=== PATIENT | male | born 1975 | race Caucasian/White ===

== ENCOUNTER → 2020-01-11 09:49 | Outpatient (CLI) | payer OTHER, SELFPAY ==
--- NOTE | ~2020-01-11 | MR_ITS ---
EXAMINATION: MR lumbar spine wo/w con DATE: 01/11/2020 11:39 INDICATION: Intervertebral disc degeneration with low back pain and 3 weeks of left leg pain. TECHNIQUE: Magnetic resonance imaging (MRI) of the lumbar spine was performed without and with 18 mL Multihance intravenous contrast. Sequences included sagittal T2-weighted FSE, sagittal T2-weighted FS FSE, sagittal T1-weighted FSE, axial T2-weighted FSE, and axial T1-weighted SE. Postcontrast sequenc es included sagittal T1-weighted FS FSE, and axial T1-weighted FS SE. COMPARISON: None FINDINGS: Alignment is normal. Vertebral body heights are normal. Normal marrow signal. Disc desiccation, cliff lar fissures and mild disc height loss at L4-L5 and L5-S1. The conus medullaris terminates at L1. The re is normal signal in the caudal spinal cord. Paravertebral soft tissues are unremarkable. No abnorm ally enhancing lesions identified. The following disc levels are specifically discussed: T12-L1: The disc does not extend beyond the endplate margin. There is no facet joint osteoarthritis. There is no neural foraminal stenosis. There is no central canal stenosis. L1-L2: The disc does not extend beyond the endplate margin. There is mild bilateral facet joint osteo arthritis. There is no neural foraminal stenosis. There is no central canal stenosis. L2-L3: The disc does not extend beyond the endplate margin. There is mild right and minimal left face t joint osteoarthritis. There is no neural foraminal stenosis. There is no central canal stenosis. L3-L4: The disc does not extend beyond the endplate margin. There is mild left and minimal right face t joint osteoarthritis. There is no neural foraminal stenosis. There is no central canal stenosis. L4-L5: Disc is bulging with superimposed small central disc extrusion with disc which are extending u p to 3 mm cephalad to the level of the inferior endplate of L4. There is mild left and minimal right facet joint osteoarthritis. There is mild to moderate bilateral neural foraminal stenosis. There is m ild central canal stenosis. L5-S1: Disc is mildly bulging with superimposed small right paracentral disc extrusion with disc mate rial extending a couple millimeters caudal to the level of the superior endplate of S1. There is mild bilateral facet joint osteoarthritis. There is moderate bilateral, left greater than right neural fo raminal stenosis. There is no central canal stenosis. IMPRESSION: 1. Mild lower lumbar spondylosis with moderate bilateral neural foraminal stenosis at L5-S1. Reviewed, dictated and finalized at location A. IMPRESSION: 1. Mild lower lumbar spondylosis with moderate bilateral neural foraminal steno sis at L5-S1.
[2020-01-11 11:03] LABS: Estimated Glomerular Filt Rate 60
== END ==
PROVIDERS: Visit Provider Chiropractor
DX: M51.36 Other intervertebral disc degeneration, lumbar region (principal); M54.32 Sciatica, left side; M47.896 Other spondylosis, lumbar region
CPT/HCPCS: 36415; 72158; A9577

== ENCOUNTER 2020-09-28 23:15 | Emergency (ER) | payer OTHER, SELFPAY ==
--- NOTE | ~2020-09-28 | CT_ITS ---
EXAMINATION: CT abdomen pelvis wo con DATE: 09/29/2020 00:42 INDICATION: Right flank pain TECHNIQUE: Computed tomography (CT) of the abdomen and pelvis was performed without intravenous contr ast. The dose-length product (DLP) was 649.19 mGy-cm. Automated exposure control and iterative recons truction technique were employed. COMPARISON: 09/05/2019 FINDINGS: Minimal dependent atelectasis is present in the lung bases. The heart size is normal. The l iver, spleen, pancreas, gallbladder, and adrenal glands are normal. There is a 4 mm stone at the righ t ureterovesicular junction. A second 4 mm stone is seen in the distal right ureter. There is moderat e right hydroureteronephrosis. There are punctate nonobstructing stones in both kidneys. No pathologi elie enlarged abdominal or pelvic lymph nodes are identified. There is no free intraperitoneal gas o r evidence of bowel obstruction. The appendix is normal. There is mild lumbar spondylosis. IMPRESSION: 1. Two 4 mm stones of the right ureter, one in the distal ureter and one at the ureterovesicular junc tion which causes moderate hydroureteronephrosis. 2. Punctate bilateral nephrolithiasis. Reviewed, dictated and finalized at location A. L EXPERT IMPRESSION: 1. Two 4 mm stones of the right ureter, one in the distal ureter and one at the ureterovesicular junction which causes moderate hydroureteronephrosis. 2. Punctate bilateral nephrolithiasis.
[2020-09-28 23:21] VITALS: BP 142/95; PULSE 92; RESP 20; TEMP 36.2; O2SAT 100
[2020-09-28 23:42] LABS: Basophils Absolute Auto 0.1 K/mm3 (0.0-0.1); Basophils Percent Auto 0.9 % (0.2-1.2); Eosinophils Absolute Auto 0.2 K/mm3 (0-0.3); Eosinophils Percent Auto 2.1 % (0-4.4); Hematocrit 47.3 % (42.0-52.0); Hemoglobin 16.7 g/dL (14.0-18.0); Immature Granulocyte Absolute 0.02 K/mm3 (0.00-0.031); Immature Granulocyte Percent A 0.2 % (0-0.5); Lymphocytes Absolute Auto 2.46 K/mm3 (0.9-3.2); Lymphocytes Percent Auto 30.6 % (18.3-44.2); Mean Corpuscular HGB Conc 35.3 g/dl (32-36); Mean Corpuscular Hemoglobin 31.4 pg (26-34); Mean Corpuscular Volume 88.9 fl (80-100); Mean Platelet Volume 8.9 fl (7.4-10.4); Monocytes Percent Auto 11.9 % (2.6-8.5); Neutrophils Absolute Auto 4.4 K/mm3 (1.3-6.7); Neutrophils Percent Auto 54.3 % (45.5-73.1); Platelet Count Result 259 k/mm3 (150-375); Red Blood Count 5.32 M/mm3 (4.6-6.20); Red Cell Distribution Width 12.1 % (11.5-14.5)
[2020-09-28] MEDS: MORPHINE SULFATE (*CRX) 4 MG/ML INJ IV PUSH (23:44)
[2020-09-28] MEDS: ONDANSETRON INJ 4 MG/2 ML VIAL IV PUSH (23:44)
[2020-09-28 23:48] VITALS: O2SAT 100
[2020-09-28 23:49] VITALS: BP 131/86; O2SAT 100
[2020-09-28 23:50] LABS: Add Urine Microscopic? YES; Appearance Urine Clear (Clear); Bilirubin Urine Negative (Negative); Blood Urine 3+ (Negative); Color Urine Yellow (Yellow); Glucose Urine UA Negative (Negative); Ketones Urine Negative (Negative); Leukocyte Esterase Ur Negative LEU/UL (Negative); Mucus Urine Few /lpf; Nitrate Urine Negative (Negative); Protein Urine 1+ mg/dL (Negative); RBC Urine >75 /hpf (0-2); Specific Grav Ur 1.018 (1.001-1.035); Squamous Epithelial Cell Urine Rare /hpf (Few); Urobilinogen Urine Negative mg/dL (<2.0)
[2020-09-29] VITALS: BP 136/96; O2SAT 98
[2020-09-29 00:01] VITALS: O2SAT 98
[2020-09-29 00:02] LABS: Anion Gap 8 mmol/L (8-16); Blood Urea Nitrogen 11 mg/dL (9-20); Calcium 9.2 mg/dL (8.4-10.2); Carbon Dioxide 29 mmol/L (22-30); Chloride 100 mmol/L (98-107); Estimated CRCL calculation 78 ml/min; Estimated Glomerular Filt Rate > 60; Glucose 115 mg/dL (75-110); Potassium 3.7 mmol/L (3.4-5.0); Sodium 137 mmol/L (137-145)
[2020-09-29 00:15] VITALS: O2SAT 98
[2020-09-29 00:31] VITALS: O2SAT 99
[2020-09-29] MEDS: HYDROmorphone HCL INJ (*CRX) 1 MG/ML SYR IV PUSH ×2 (00:45→01:59)
[2020-09-29] MEDS: ONDANSETRON INJ 4 MG/2 ML VIAL IV PUSH (00:45)
--- NOTE | 2020-09-29 01:37 | ED.GENADULT ---
HPI - General Adult General Chief complaint: Urogenital-Male Stated complaint: right flank pain Time Seen by Provider: 09/29/20 00:20 History of Present Illness HPI narrative: Patient 44-year-old gentleman who presents to emergency department with chief complaint of right flank pain. The patient reports he has history of kidney stones states this feels similar to whenever he has had stone before in the past. Patient sees urology the Dr. Barone and reports that he is only had 1 prior episode where he is required a stent. Patient states that he has had no fever no chills. The patient states the pain is not worsened by anything nor is it improved by anything. Related Data Allergies Allergy/AdvReac Type Severity Reaction Status Date / Time No Known Allergies Allergy Verified 09/28/20 23:25 Review of Systems Review of Systems: Narrative: A 10 system review of systems was completed on the patient and is negative except for what is stated in the HPI. Nursing and ancillary documentation was reviewed. [facility]LY [facility] Past Medical History Medical History Urolithiasis Surgical History Surgical History S/P ureteral stent placement Social History Social History Gender identity (if verbalized by the patient): Male Exam Narrative: Exam Narrative: GENERAL: Well-appearing, well-nourished, and in no acute distress. HEAD: Normocephalic, atraumatic. EYES: PERRLA and EOMI. ENT: Nares clear, no rhinorrhea or epistaxis. Mucous membranes moist. NECK: Supple. CHEST: Clear to auscultation. No respiratory distress. HEART: Regular rate and rhythm. No murmur heard. Normal peripheral pulses. ABDOMEN: Soft, nontender, nondistended, normal active bowel sounds. EXTREMITIES: Normal range of motion. No edema. SKIN: Warm, dry, no rash. NEURO: No focal deficits. Alert and oriented x3. PSYCH: Normal mood and affect. Course Course Emergency Course: Patient's pain was improved in the emergency department CT scan showed evidence of a 5 mm distal stone and a 4 mm stone Vital Signs Vital signs: Vital Signs Temperature 36.2 C L 09/28/20 23:21 Pulse Rate 92 09/28/20 23:21 Respiratory Rate 20 09/28/20 23:21 Blood Pressure 142/95 H 09/28/20 23:21 Pulse Oximetry 100 09/28/20 23:21 Temperature 36.2 C L 09/28/20 23:21 Pulse Rate 92 09/28/20 23:21 Respiratory Rate 20 09/28/20 23:21 Blood Pressure 136/96 H 09/29/20 00:00 Pulse Oximetry 99 09/29/20 00:31 Medical Decision Making Vital Signs Vital Signs: Vital Signs Temperature 36.2 C L 09/28/20 23:21 Pulse Rate 92 09/28/20 23:21 Respiratory Rate 20 09/28/20 23:21 Blood Pressure 142/95 H 09/28/20 23:21 Pulse Oximetry 100 09/28/20 23:21 Temperature 36.2 C L 09/28/20 23:21 Pulse Rate 92 09/28/20 23:21 Respiratory Rate 20 09/28/20 23:21 Blood Pressure 136/96 H 09/29/20 00:00 Pulse Oximetry 99 09/29/20 00:31 Lab Data Result diagrams: 09/28/20 23:35 09/28/20 23:35 Labs: Lab Results 09/28/20 09/28/20 09/28/20 Range/Units 23:35 23:35 23:35 WBC 8.0 (4.5-10.0) K/mm3 RBC 5.32 (4.6-6.20) M/mm3 Hgb 16.7 (14.0-18.0) g/dL Hct 47.3 (42.0-52.0) % MCV 88.9 (80-100) fl MCH 31.4 (26-34) pg MCHC 35.3 (32-36) g/dl RDW 12.1 (11.5-14.5) % Plt Count 259 (150-375) k/mm3 MPV 8.9 (7.4-10.4) fl Immature Gran % (Auto) 0.2 (0-0.5) % Neut % (Auto) 54.3 (45.5-73.1) % Lymph % (Auto) 30.6 (18.3-44.2) % [place] % (Auto) 11.9 H (2.6-8.5) % Eos % (Auto) 2.1 (0-4.4) % Baso % (Auto) 0.9 (0.2-1.2) % Lymph # (Auto) 2.46 (0.9-3.2) K/mm3 [place] # (Auto) 1.0 H (0.1-0.6) K/mm3 Eos # (Auto) 0.2 (0-0.3) K/mm3 Baso # (Auto) 0.1 (0.0-0.1) K/mm3 Abs Immat Gran
[2020-09-29] MEDS: KETOROLAC 15 MG/ML VIAL (*BKC) IV PUSH (01:59)
[2020-09-29] MEDS: TAMSULOSIN HCL 0.4 MG CAPSULE PO (01:59)
[2020-09-29 02:15] VITALS: BP 123/89; PULSE 99; RESP 18; O2SAT 97
== END 2020-09-29 02:17 | disposition home or self-care (01) ==
PROVIDERS: Emergency Provider Emergency Medicine
DX: N13.2 Hydronephrosis with renal and ureteral calculous obstruction (principal)
CPT/HCPCS: 36415; 74176; 80048; 81001; 85025; 96374; 96375; 96376; 99284; A9270; J1170; J1885; J2270; J2405

== ENCOUNTER 2020-10-27 08:38 | Outpatient (CLI) | payer OTHER, SELFPAY ==
--- NOTE | 2020-11-21 13:52 | WPDHOMESLEEP ---
Sleep Study - Home Unattended Date of Study: 10/27/20 Ordering Provider: Jagdish Burk MD Interpreting Provider: Shaila Goldstein MD Home Sleep Study Type: Apnea Link Air Height: 1.78 m Weight: 92.986 kg Body Mass Index: 29.4 Neck Circumference (inches): 16.25 Sparks: 5 Reason for Sleep Study loud snoring Sleep History Phillip Addison is a 45-year-old male who has constant loud snoring, and the snoring is loud enough that others complain about it. He frequently awakens at night with [place] burn, belching or coughing. He does not awaken from sleep feeling short of breath. Rarely has trouble sleep with a cold. He does not wake up gasping for breath at night. He rarely has breathing problems at night observed by others. He occasionally sweats excessively at night. He does not notice his heart pounding irregularly at night. He rarely falls asleep during the day, never involuntarily and never while driving. He does not have loss of muscle tone was strong emotion. He does not have daytime difficulties due to excessive sleepiness. 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 He does not feel paralyzed on waking or falling asleep. He does not have vivid dreamlike scenes upon awakening or falling asleep. He does not feel afraid to go to sleep. He does not have nightmares. He occasionally remembers his dreams. He rarely has racing thoughts. He does not feel sad or depressed. He occasionally has anxiety. He does not have muscular tension. He occasionally notices parts of his body jerking. He rarely kicks at night. He does not have crawling and aching feelings in his legs. He does not have leg pain at night. He occasionally wakes up with morning jaw pain. He occasionally grind his teeth during sleep. He is not bothered by pain during the day, is not awakened by pain at night. He constantly wakes up feeling stiff in the morning, frequently with sore achy muscles and pain in the neck and spine. He takes antacids regularly. Normal bedtime is 10:00 p.m. falling asleep quickly but at other times taking quite a while to initiate sleep. He wakes up typically 1 or 2 times at night, will move from couch. He is able to fall asleep quickly again. He wakes the morning at 7:00 a.m.. Weekend he goes to bed between 10:00 and 11:00 pm, waking between 8:00 am and 9:00 am. He is drowsy for 2 hours or longer after waking. He does not usually take naps. Naps are not refreshing. Habits: He has never smoked tobacco. Caffeine 1 cup of coffee a day occasionally a soda. Alcohol 1 or 2 beers on the weekend. [facility] Past Medical History Medical History Kidney stones 1998 Urolithiasis Surgical History Surgical History Previous back surgery 05/18 micro-discectomy S/P ureteral stent placement Family History Family History Father Cerebrovascular accident Legally blind Other Kidney stones Previous back surgery Social History Social History Smoking status: Never smoker Tobacco type: smokeless tobacco Alcohol intake: former Gender identity (if verbalized by the patient): Male Sleep Procedure This test was performed using 4 channel monitoring including respiratory effort channel, snoring channel, heart rate channel, and oxygen saturation channel. This study was scored using [facility] guidelines. Sleep Architecture Not applicable for home sleep test. Respiratory Analysis Duration of the recording time is 8 hours 20 minutes. Evaluation time is 8 hours 8 minutes. The apnea-hypopnea index is elevated at 19. He had 48 apneas. Had 34 obstructive apneas, 71% obstructive events, 13 central apneas, 27% central events and 1 mixed apnea 2% of the total. He had 108 hypopneas. there is no evidence of Sukhdev-Osborne respirations.
[2020-11-21 15:15] VITALS: BMI 29.4
== END 2020-10-27 08:39 | disposition home or self-care (01) ==
LOC: ANHCSM 08:40
PROVIDERS: Family Provider Family Medicine; Visit Provider Family Medicine
DX: G47.10 Hypersomnia, unspecified (principal); G47.33 Obstructive sleep apnea (adult) (pediatric)
CPT/HCPCS: 95806

== ENCOUNTER → 2021-01-22 04:31 | Outpatient (CLI) | payer OTHER, SELFPAY ==
[2021-01-22 19:57] LABS: SARS-CoV-2 RNA PCR Negative
== END ==
PROVIDERS: PCP Emergency Medicine; Visit Provider Internal Medicine Critical Care Medicine
DX: Z01.812 Encounter for preprocedural laboratory examination (principal); Z20.822 Contact with and (suspected) exposure to COVID-19
CPT/HCPCS: C9803; U0003; U0005

== ENCOUNTER 2021-01-24 07:17 | Outpatient (CLI) | payer OTHER, SELFPAY ==
--- NOTE | 2021-02-06 17:22 | WPDSLEEPSTUD ---
Sleep Study Ordering Provider: Pal Ramos MD Interpreting Physician: Shaila Goldstein MD Sleep Study Type: CPAP Titration Height: 1.78 m Weight: 93.416 kg Body Mass Index: 29.5 Neck Circumference (inches): 17 Slemp: 6 Reason for Sleep Study Home sleep test Oct 27, 2020 with moderate KRISTEN, AHI 19., desaturation to 89%. He had 48 apneas; 34 obstructive apneas, 71% obstructive events, 13 central apneas, 27% central events and 1 mixed apnea 2% of the total. He had 108 hypopneas. He is here for CPAP titration. Sleep History Phillip Addison is a 45-year-old male who has constant loud snoring, and the snoring is loud enough that others complain about it. He frequently awakens at night with heartburn, belching or coughing. He does not awaken from sleep feeling short of breath. He rarely has trouble sleep with a cold. He does not wake up gasping for breath at night. He rarely has breathing problems at night observed by others. He occasionally sweats excessively at night. He does not notice his heart pounding irregularly at night. He rarely falls asleep during the day, never involuntarily and never while driving. He does not have loss of muscle tone with strong emotion. He does not have daytime difficulties due to excessive sleepiness. 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 He does not feel paralyzed on waking or falling asleep. He does not have vivid dreamlike scenes upon awakening or falling asleep. He does not feel afraid to go to sleep. He does not have nightmares. He occasionally remembers his dreams. He rarely has racing thoughts. He does not feel sad or depressed. He occasionally has anxiety. He does not have muscular tension. He occasionally notices parts of his body jerking. He rarely kicks at night. He does not have crawling and aching feelings in his legs. He does not have leg pain at night. He occasionally wakes up with morning jaw pain. He occasionally grind his teeth during sleep. He is not bothered by pain during the day, is not awakened by pain at night. He constantly wakes up feeling stiff in the morning, frequently with sore achy muscles and pain in the neck and spine. He takes antacids regularly. Normal bedtime is 10:00 p.m. falling asleep quickly but at other times taking quite a while to initiate sleep. He wakes up typically 1 or 2 times at night, will move to the couch. He is able to fall asleep quickly again. He wakes the morning at 7:00 a.m.. Weekends, he goes to bed between 10:00 and 11:00 pm, waking between 8:00 am and 9:00 am. He is drowsy for 2 hours or longer after waking. He does not usually take naps. Naps are not refreshing. Habits: He has never smoked tobacco. Caffeine 1 cup of coffee a day and occasionally a soda. Alcohol 1 or 2 beers on the weekends. FORMERLY [facility] Past Medical History Medical History (Updated 02/06/21 @ 17:23 by Shaila Goldstein MD) Kidney stones 1998 Obstructive sleep apnea Urolithiasis Surgical History Surgical History Previous back surgery 05/18 micro-discectomy S/P ureteral stent placement Family History Family History Father Cerebrovascular accident Legally blind Other Kidney stones Previous back surgery Social History Social History Smoking status: Never smoker Tobacco type: smokeless tobacco Alcohol intake: former Gender identity (if verbalized by the patient): Male Medications Medications: none listed Sleep Procedure This test was performed using the [employer] multiple channel system including EOG, EEG, submental EMG, EKG, nasal and oral airflow using thermistors and nasal pressure sensors, chest and abdominal belts for body position data, and pulse oximetry. Video monitoring was also performed. The study was scored using [facility] guidelines. The patient was started on CPAP using a
[2021-02-06 17:23] VITALS: BMI 29.5
== END 2021-01-24 07:18 | disposition home or self-care (01) ==
LOC: ANHCSM 07:18
PROVIDERS: PCP Emergency Medicine; Visit Provider Emergency Medicine
DX: G47.33 Obstructive sleep apnea (adult) (pediatric) (principal)
CPT/HCPCS: 95811

== ENCOUNTER 2022-07-31 03:22 | Emergency (ER) | payer OTHER, SELFPAY ==
--- NOTE | ~2022-07-31 | XR_ITS ---
EXAMINATION: XR abdomen/kub 1V DATE: 07/31/2022 06:30 INDICATION: Kidney stone. TECHNIQUE: A supine view of the abdomen on 2 radiographs was obtained. COMPARISON: Abdomen radiographs 09/05/2019 FINDINGS: There are no dilated loops of bowel. There is a 4 mm stone in proximal right ureter at L3. IMPRESSION: 1. 4 mm stone in proximal right ureter. Reviewed, dictated and finalized at location A.
--- NOTE | ~2022-07-31 | CT_ITS ---
EXAMINATION: CT abdomen pelvis wo con DATE: 07/31/2022 04:00 INDICATION: Right flank pain. TECHNIQUE: Computed tomography (CT) of the abdomen and pelvis was performed without intravenous contr ast. Automated exposure control and iterative reconstruction technique were employed. The dose-length product was 354.47 mGy-cm. COMPARISON: CT abdomen and pelvis 09/29/2020 FINDINGS: The visualized portions of the lung bases demonstrate mild atelectasis. No pleural effusion . The heart size is normal. No pericardial effusion. The liver, gallbladder, spleen, pancreas, and ad renal glands are normal. There is a 2 mm stone in right kidney. There is mild right hydronephrosis an d hydroureter. There is a 4 mm stone in proximal right ureter. There is a 4 mm stone in left kidney. There are no dilated loops of bowel. The appendix is normal. There are no pathologically enlarged lym ph nodes. There is no free intraperitoneal fluid. There is severe lower lumbar spondylosis. IMPRESSION: 1. 4 mm stone in proximal right ureter with mild right hydronephrosis and hydroureter. 2. Bilateral nonobstructing kidney stones. Reviewed, dictated and finalized at location A. IMPRESSION: 1. 4 mm stone in proximal right ureter with mild right hydronephrosis and hydro ureter. 2. Bilateral nonobstructing kidney stones.
[2022-07-31 03:37] VITALS: BP 143/96; PULSE 77; RESP 18; TEMP 36.3; O2SAT 97
[2022-07-31] MEDS: ONDANSETRON INJ 4 MG/2 ML VIAL IV PUSH (04:07)
[2022-07-31] MEDS: KETOROLAC 30 MG/ML VIAL (*BKC) IV PUSH (04:07)
[2022-07-31] MEDS: SODIUM CHLORIDE 0.9% IV 1,000 ML 999 ML IV CONT (04:07)
[2022-07-31] MEDS: MORPHINE SULFATE (*CRX) 4 MG/ML INJ IV PUSH (04:49)
[2022-07-31 05:01] LABS: Appearance Urine Clear (Clear); Bilirubin Urine Negative (Negative); Blood Urine 1+ (Negative); Color Urine Yellow (Yellow); Glucose Urine UA Negative (Negative); Ketones Urine Negative (Negative); Leukocyte Esterase Ur Negative LEU/UL (Negative); Nitrate Urine Negative (Negative); Protein Urine Negative (Negative); Specific Grav Ur 1.025 (1.001-1.035); Urobilinogen Urine 0.2 mg/dL (<2.0); pH Urine 5.5 (5.0-9.0)
[2022-07-31 05:21] LABS: Add Urine Microscopic? YES
--- NOTE | 2022-07-31 05:27 | ED.MALEGU ---
HPI - Male Genitourinary General Chief complaint: Urogenital-Male Stated complaint: Kidney stone R side Time Seen by Provider: 07/31/22 03:25 History of Present Illness HPI Narrative: Patient is a 46-year-old male who presents to the ER with right-sided flank pain. Sudden onset this evening. Right side of her abdomen. Associate with nausea but no vomiting. No urinary frequency or urgency. Denies fevers or chills or sweats. Has history of recurrent kidney stones in the past. Began drinking water when symptoms started. Alleviating factors Related Data Allergies Allergy/AdvReac Type Severity Reaction Status Date / Time No Known Allergies Allergy Verified 12/31/21 10:42 Review of Systems Review of Systems: All systems reviewed & are unremarkable except as noted in HPI and below Constitutional: Constitutional: Denies chills, Denies fatigue and Denies fever(s) ENT: Denies nasal congestion and Denies sore throat Cardiovascular: Cardiovascular: Denies chest pain and Denies rapid heart rate Gastrointestinal: Gastrointestinal: Reports abdominal pain, Reports nausea and Denies vomiting Genitourinary: Genitourinary: Denies hematuria, Denies dysuria and Denies urinary frequency Comments: Positive flank pain PMFSH Past Medical History Medical History Kidney stones 1998 Obstructive sleep apnea Urolithiasis Surgical History Surgical History Previous back surgery 05/18 micro-discectomy S/P ureteral stent placement Family History Family History Father Cerebrovascular accident Legally blind Other Kidney stones Previous back surgery Social History Social History Smoking status: Never smoker Tobacco type: smokeless tobacco Alcohol intake: former Gender identity (if verbalized by the patient): Male Exam Narrative: GENERAL: Uncomfortable-appearing, well-nourished, and in no acute distress. HEAD: Normocephalic, atraumatic. ENT: Mucous membranes moist. CHEST: Clear to auscultation. No respiratory distress. HEART: Regular rate and rhythm. Normal peripheral pulses. ABDOMEN: Soft, nontender, nondistended. No CVA tenderness. EXTREMITIES: Normal range of motion. No edema. SKIN: Warm, dry, no rash. NEURO: Alert and oriented x3. PSYCH: Normal mood and affect. Course Vital Signs Vital signs: Vital Signs Temperature 97.4 F L 07/31/22 03:37 Pulse Rate 77 07/31/22 03:37 Respiratory Rate 18 07/31/22 03:37 Blood Pressure 143/96 H 07/31/22 03:37 Pulse Oximetry 97 07/31/22 03:37 Oxygen Delivery Room Air 07/31/22 03:37 Temperature 97.4 F L 07/31/22 03:37 Pulse Rate 81 07/31/22 06:10 Respiratory Rate 18 07/31/22 06:10 Blood Pressure 134/83 07/31/22 06:10 Pulse Oximetry 98 07/31/22 06:10 Oxygen Delivery Room Air 07/31/22 03:37 MDM - Male Genitourinary Lab Data Labs: Lab Results 07/31/22 Range/Units 04:52 Urine Color Yellow (Yellow) Urine Appearance Clear (Clear) Urine pH 5.5 (5.0-9.0) Ur Specific [place] 1.025 (1.001-1.035) Urine Protein Negative (Negative) mg/dL Urine Glucose (UA) Negative (Negative) mg/dL Urine Ketones Negative (Negative) mg/dL Ur Blood (Man) 1+ H (Negative) Urine Nitrate Negative (Negative) Urine Bilirubin Negative (Negative) Urine Urobilinogen 0.2 (<2.0) mg/dL Leukocyte Esterase Rfl Negative (Negative) ESTRELLA/UL Imaging Data Radiologist's impression: CT abdomen pelvis without contrast: 3 x 4 x 6 mm obstructive calculus within the right proximal ureter with upstream mild right renal hydronephrosis with perinephric and proximal ureteral stranding. Other nonobstructive calculi bilaterally the largest a 3 mm nonobstructive calculus within the inferior pole the rig
[2022-07-31 06:10] VITALS: BP 134/83; PULSE 81; RESP 18; O2SAT 98
[2022-07-31 06:36] LABS: Mucus Urine Rare /lpf; Squamous Epithelial Cell Urine Occasional /hpf (Few)
== END 2022-07-31 07:03 | disposition home or self-care (01) ==
PROVIDERS: Emergency Provider Emergency Medicine; PCP Emergency Medicine
DX: N20.1 Calculus of ureter (principal)
CPT/HCPCS: 74018; 74176; 81001; 96361; 96374; 96375; 99284; J1885; J2270; J2405; J7030

== ENCOUNTER 2022-08-05 08:14 | Outpatient (CLI) | payer OTHER, SELFPAY ==
--- NOTE | ~2022-08-05 | XR_ITS ---
EXAMINATION: XR abdomen/kub 1V DATE: 08/05/2022 08:41 INDICATION: Right ureteral stone. TECHNIQUE: A supine view of the abdomen on 2 radiographs was obtained. COMPARISON: Abdomen radiograph 07/31/2022, CT abdomen and pelvis 07/31/2022 FINDINGS: There are no dilated loops of bowel. There is a 4 mm stone in left kidney. IMPRESSION: 1. 4 mm stone in left kidney. Reviewed, dictated and finalized at location A. [employer]
== END 2022-08-05 08:15 | disposition home or self-care (01) ==
PROVIDERS: PCP Emergency Medicine; Visit Provider Urology
DX: N20.0 Calculus of kidney (principal)
CPT/HCPCS: 74018

== ENCOUNTER 2022-08-11 04:18 | Emergency (ER) | payer OTHER, SELFPAY ==
--- NOTE | ~2022-08-11 | CT_ITS ---
EXAMINATION: CT abdomen pelvis wo con DATE: 08/11/2022 05:01 INDICATION: Right ureteral stone TECHNIQUE: Computed tomography (CT) of the abdomen and pelvis was performed without intravenous contr ast. Automated exposure control and iterative reconstruction technique were employed. Exam dose: 309 .21 mGy-cm total exam DLP. COMPARISON: 07/31/2022 CT abdomen pelvis FINDINGS: Previously reported proximal right ureteral calculus is now located in the distal right ure ter at approximately S3 level, with proximal mild to moderate right hydroureteronephrosis and perinep hric and periureteral stranding. At least one pinpoint right renal calculus and approximately 4 mm obstructing lower pole left renal c alculus. Normal heart size. No pericardial or pleural effusion. The lung bases are clear of infiltrate or cons olidation. No pleural effusion. Liver, gallbladder, bile ducts, spleen, pancreas, pancreatic duct and adrenal glands are unremarkable . No renal space-occupying mass lesion is evident. Normal caliber of the abdominal aorta. No intraperitoneal or retroperitoneal or pelvic mass lesion or adenopathy or ascites. Moderate prostate enlargement and mild prostate calcification. The urinary bladder is unremarkable. Normal appendix. No bowel obstruction or free air. Moderately severe degenerative disc disease at L5-S1. No suspicious osteolytic or osteoblastic lesion s. IMPRESSION: Previous proximal right ureteral calculus of 07/31/2022 has progressed into the distal ri ght ureter at approximately S3 level, with persistent proximal mild to moderate right hydroureteronep hrosis, right perinephric and periureteral stranding Minimal bilateral nonobstructive nephrolithiasis Reviewed, dictated and finalized at [facility]. Reviewed, dictated and finalized at [facility]. 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
--- NOTE | ~2022-08-11 | XR_ITS ---
EXAMINATION: XR abdomen/kub 1V INDICATION: Right ureteral stone TECHNIQUE: Supine views of the abdomen were obtained on 2 radiographs. COMPARISON: 08/05/2022 FINDINGS: A 5 mm calcification projects over the right sacrum in the expected location of the distal ureteral stone seen on CT. The bowel gas pattern is normal. Nephrolithiasis described on the comparis on CT is not definitely identified. The visualized lung bases are clear. IMPRESSION: 1. 5 mm calcification projecting over the right sacrum in the expected location of the distal uretera l stone seen on CT. Reviewed, dictated and finalized at [facility]. 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 5 mm calcification projecting over the right sacrum in the expected location of the distal ureteral stone seen on CT.
[2022-08-11 04:29] VITALS: BP 158/99; PULSE 77; RESP 20; TEMP 36.7; O2SAT 100
--- NOTE | 2022-08-11 04:46 | ED.ABDPAIN ---
HPI - Abdominal Pain General Chief Complaint: Abdominal Pain Stated Complaint: Kidney stone, flank pain Time Seen by Provider: 08/11/22 04:34 History of Present Illness HPI narrative: 46-year-old male with history of multiple kidney stones presenting to the emergency department for evaluation of recurrent flank pain. On 07/[address] scan showing a 4 mm stone in the proximal right ureter. He presented to the emergency department for evaluation and was treated for pain in the ED. After treatment with pain patient states he felt improved. Patient did have follow-up with urology and during the follow-up KUB the stone was not seen so lithotripsy was not performed. Patient states that he then has had intermittent recurring pain over the last few evenings and has been treating with pain medications. Patient states this morning the pain recurred so he presented to the emergency department for evaluation. He reports he has passed multiple stones and has only needed a stent and lithotripsy 1 time. Related Data Allergies Allergy/AdvReac Type Severity Reaction Status Date / Time No Known Allergies Allergy Verified 08/13/22 08:56 Review of Systems Review of Systems: CONSTITUTIONAL: Denies fever, chills, or sweats. EYES: Denies visual changes, redness, or discharge. ENT: Denies rhinorrhea, congestion, sore throat, or otalgia. CARDIOVASCULAR: Denies chest pain, palpitations, or edema. RESPIRATORY: Denies cough or dyspnea. GASTROINTESTINAL: Flank pain GENITOURINARY: Denies dysuria or hematuria. SKIN: Denies rash or itching. MUSCULOSKELETAL: Denies back pain, joint pain, or myalgia. NEUROLOGIC: Denies headache, numbness, or weakness. [facility] Past Medical History Medical History Kidney stones 1998 Obstructive sleep apnea Urolithiasis Surgical History Surgical History Previous back surgery 05/18 micro-discectomy S/P ureteral stent placement Family History Family History Father Cerebrovascular accident Legally blind Other Kidney stones Previous back surgery Social History Social History Smoking status: Never smoker Tobacco type: smokeless tobacco Alcohol intake: current Alcohol use details: Socially Gender identity (if verbalized by the patient): Male Exam Narrative: APPEARANCE: Well appearing, no pain, no distress, well-nourished. HEAD: normocephalic, atraumatic. EYES: PERRLA/EOMI, conjunctivae clear. NOSE: Normal no drainage NECK: Supple. No adenopathy, no masses. RESPIRATORY: Airway patent, respirations nonlabored. Clear to auscultation bilaterally, no rales, rhonchi, wheezing. CARDIOVASCULAR: Regular rate and rhythm without murmurs rubs or gallops. ABDOMINAL: Soft, nontender, nondistended, normal bowel sounds MUSCULOSKELETAL: Moves all extremities. Strength/ROM intact, No edema, No calf tenderness. NEURO: Alert. Cranial nerves II through XII intact. Grossly intact SKIN: Warm, dry. Normal Color Course Course Emergency Course: Patient was treated with Dilaudid for pain control. Patient is afebrile with no leukocytosis. Patient's creatinine is 1.3, which is similar to his baseline. Patient's UA does show evidence of blood with a few white blood cells. No convincing evidence of a urinary tract infection. Vital Signs Vital signs: Vital Signs Temperature 98.0 F 08/11/22 04:29 Pulse Rate 77 08/11/22 04:29 Respiratory Rate 20 08/11/22 04:29 Blood Pressure 158/99 H 08/11/22 04:29 Pulse Oximetry 100 08/11/22 04:29 Oxygen Delivery Room Air 08/11/22 04:29 Temperature 98.0 F 08/11/22 04:29 Pulse Rate 90 08/11/22 08:45 Respiratory Rate 16 08/11/22 08:45 Blood Pressure 142/90 H 08/11/22 08:45 Pulse Oximetry 95 08/11/22 08:45 Oxygen
[2022-08-11 04:47] LABS: Basophils Percent Auto 0.6 % (0.2-1.2); Eosinophils Absolute Auto 0.2 K/mm3 (0-0.3); Eosinophils Percent Auto 2.7 % (0-4.4); Hematocrit 44.2 % (42.0-52.0); Hemoglobin 15.7 g/dL (14.0-18.0); Immature Granulocyte Absolute 0.02 K/mm3 (0.00-0.031); Immature Granulocyte Percent A 0.3 % (0-0.5); Lymphocytes Absolute Auto 2.41 K/mm3 (0.9-3.2); Lymphocytes Percent Auto 36.2 % (18.3-44.2); Mean Corpuscular HGB Conc 35.5 g/dl (32-36); Mean Corpuscular Hemoglobin 31.8 pg (26-34); Mean Corpuscular Volume 89.5 fl (80-100); Mean Platelet Volume 8.7 fl (7.4-10.4); Monocytes Absolute Auto 0.7 K/mm3 (0.1-0.6); Monocytes Percent Auto 10.5 % (2.6-8.5); Neutrophils Absolute Auto 3.3 K/mm3 (1.3-6.7); Neutrophils Percent Auto 49.7 % (45.5-73.1); Platelet Count Result 219 k/mm3 (150-375); Red Blood Count 4.94 M/mm3 (4.6-6.20); Red Cell Distribution Width 12.4 % (11.5-14.5); White Blood Count 6.7 K/mm3 (4.5-10.0)
--- NOTE | 2022-08-11 04:49 | PC.NURSE ---
Pt to CT scan in WC.
[2022-08-11 04:59] LABS: Alanine Aminotransferase 37 U/L (6-50); Albumin Level 4.2 g/dL (3.5-5.1); Alkaline Phosphatase 107 U/L (38-126); Anion Gap 9 mmol/L (8-16); Aspartate Amino Transferase 34 U/L (17-59); Bilirubin,Total 1.4 mg/dL (0.2-1.3); Blood Urea Nitrogen 13 mg/dL (9-20); Calcium 8.9 mg/dL (8.4-10.2); Carbon Dioxide 26 mmol/L (22-30); Chloride 103 mmol/L (98-107); Estimated CRCL calculation 73 ml/min; Estimated Glomerular Filt Rate 59; Glucose 103 mg/dL (65-110); Potassium 3.9 mmol/L (3.4-5.0); Sodium 138 mmol/L (137-145)
[2022-08-11 05:16] LABS: Appearance Urine Clear (Clear); Bilirubin Urine Negative (Negative); Blood Urine 2+ (Negative); Color Urine Yellow (Yellow); Glucose Urine UA Negative (Negative); Ketones Urine Negative (Negative); Leukocyte Esterase Ur Negative LEU/UL (Negative); Nitrate Urine Negative (Negative); Protein Urine Negative (Negative); Specific Grav Ur >= 1.030 (1.001-1.035); Urobilinogen Urine 0.2 mg/dL (<2.0); pH Urine 5.5 (5.0-9.0)
[2022-08-11 05:18] LABS: Calcium Oxalate Crystals Urine Present /hpf; Mucus Urine Rare /lpf; RBC Urine >75 /hpf (0-2); Squamous Epithelial Cell Urine Rare /hpf (Few)
[2022-08-11] MEDS: HYDROmorphone HCL INJ (*CRX) 1 MG/ML SYR IV PUSH (05:20)
[2022-08-11 05:26] LABS: Add Urine Microscopic? YES
--- NOTE | 2022-08-11 07:51 | PC.NURSE ---
Pt using urinal. Updated on POC and x-ray, verbalized understanding. Provided warm blankets.
[2022-08-11 08:20] VITALS: BP 140/86; PULSE 85; RESP 19; O2SAT 97
[2022-08-11] MEDS: HYDROmorphone HCL INJ (*CRX) 1 MG/ML SYR 0.5 MG IV PUSH (08:24)
[2022-08-11] MEDS: HYDROcodone/acetaminophen (*CRX) 5-325 MG TABLET 1 TAB PO (08:28)
[2022-08-11 08:45] VITALS: BP 142/90; PULSE 90; RESP 16; O2SAT 95
== END 2022-08-11 08:45 | disposition home or self-care (01) ==
PROVIDERS: Emergency Provider Emergency Medicine; PCP Emergency Medicine
DX: N13.2 Hydronephrosis with renal and ureteral calculous obstruction (principal); G47.33 Obstructive sleep apnea (adult) (pediatric); F17.220 Nicotine dependence, chewing tobacco, uncomplicated; Z87.442 Personal history of urinary calculi
CPT/HCPCS: 36415; 74018; 74176; 80053; 81001; 85025; 96374; 96376; 99284; A9270; J1170

== ENCOUNTER 2022-12-03 09:41 | Outpatient (CLI) | payer OTHER, SELFPAY ==
--- NOTE | 2022-12-26 21:07 | WPDSLEEPSTUD ---
Sleep Study Date of Study: 12/03/22 Ordering Provider: Amrit Cummings APRN Interpreting Physician: Adriane Ortiz DO Sleep Study Type: Split Polysomnogram Height: 1.78 m Weight: 95.254 kg Body Mass Index: 30.1 Neck Circumference (inches): 17.5 [place]: 7 Reason for Sleep Study Previously diagnosed KRISTEN 2 years ago. Difficulty tolerating PAP Sleep History The patient is a 47-year-old male with hyperlipidemia, neck pain, back pain with history of surgery, GERD previously diagnosed sleep apnea that had a sleep study ordered by the pulmonary group so the patient could requalify for PAP. 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 He denies awakening from sleep short of breath. He frequently awakens at night with heartburn, belching or cough. He frequently snores loudly enough that others complain. He denies having trouble sleeping when he has a cold. He denies waking up gasping for air throughout the night. He denies having breathing problems at night observed by himself or others. He occasionally sweats excessively at night. He denies having heart palpitations or irregular heartbeats during the night. He frequently falls asleep during the day but never while driving. He denies sleep paralysis, cataplexy and hypnagogic / hypnopompic hallucinations. He occasionally has trouble at school or work due to sleepiness. He denies feeling afraid of going to sleep. He denies having nightmares. He rarely remembers his dreams. He denies having thoughts racing through his mind. He occasionally feels sad or depressed. He occasionally has anxiety. He frequently has muscular tension. He occasionally notices parts of his body jerk. He denies kicking during the night. He denies having crawling and aching feelings in his legs and denies having leg pain during the night. He denies grinding his teeth during sleep and denies awakening with morning jaw pain. He is frequently bothered by pain during the day but never awakened by pain during the night. He constantly wakes up feeling stiff the morning. He constantly wakes up with sore or achy muscles. He constantly wakes up with pain in the neck, spine or other joints. The patient goes to bed between 9-10 p.m. on both weekdays and weekends. It can take him up to an hour to asleep. He wakes up multiple times throughout the night for unknown reasons. When he awakens, he will lay in bed. If it takes too long for him to fall back asleep, he will move to the CABG. He wakes up between 6-7 a.m. on weekdays and 8:00 a.m. weekends. He is physically in bed for 8 hours but is unsure how long he has actually asleep. He will stay in bed for 20-30 minutes after waking up in the morning. He currently lives with his and children. He does not consume any caffeinated beverages within 2 hours of bedtime. He does not engage in physical exercise before bedtime. He will read and watch television before falling asleep. He does not take naps in the afternoon and evening. He drinks 1-2 caffeinated beverages per day. He consumes 1-2 alcoholic beverages per week. He denies tobacco and recreational drug use. [facility] Past Medical History Medical History Kidney stones 1998 Obstructive sleep apnea Urolithiasis Surgical History Surgical History Previous back surgery 05/18 micro-discectomy S/P ureteral stent placement Family History Family History Father Cerebrovascular accident Legally blind Other Kidney stones Previous back surgery Social History Social History Smoking status: Never smoker Tobacco type: smokeless tobacco Alcohol intake: current Alcohol use details: Socially Lack of Transportation: No Lack of Food: Never True Current Housing: I Have H
[2022-12-26 21:23] VITALS: BMI 30.1
== END 2022-12-04 06:45 | disposition home or self-care (01) ==
LOC: ANHCSM 09:43
PROVIDERS: PCP Emergency Medicine; Visit Provider Nurse Practitioner Family
DX: G47.33 Obstructive sleep apnea (adult) (pediatric) (principal); G47.10 Hypersomnia, unspecified
CPT/HCPCS: 95811

== ENCOUNTER 2024-03-31 15:26 | Emergency (ER) | payer OTHER, SELFPAY ==
--- NOTE | ~2024-03-31 | CT_ITS ---
CT abdomen pelvis wo con Ordering provider: Herlinda Wu APRN History: 48 years Male with . renal stone r/o . Comparison: August 11, 2022 Technique: CT abdomen and pelvis without IV and without oral contrast. Automated exposure control and iterative reconstruction technique were employed. The dose-length product was 317.75 mGy-cm. Findings: VISUALIZED LOWER CHEST: Normal. UPPER ABDOMINAL ORGANS: Liver: Normal. Gallbladder: Normal. Spleen: Normal. Stomach/duodenum: Normal. Pancreas: Normal. Adrenals: Normal. Kidneys: Stone in the right mid ureter is noted with dilatation of the right pelvic calyceal system. Stone in the left renal pelvis with mild left hydronephrotic changes. This stone in the left kidney m easures 1.5 cm mild this stone in the right midureter measures 5 mm. PELVIC ORGANS: The bladder is normal. Prostatitic calcifications. BOWEL AND MESENTERY: Colon: No evidence of diverticulitis. Normal appendix. Small Bowel: No obstruction. Slight dilatation of the jejunal loops with slight thickening of the wal l is seen which may indicate enteritis. Peritoneum/mesentery: No free air or free fluid. No mesenteric lymphadenopathy. RETROPERITONEUM: Normal aorta. No retroperitoneal lymphadenopathy. MUSCULOSKELETAL: Superficial soft tissues: The superficial soft tissues are normal. Bones: Age appropriate degenerative changes of the spine. IMPRESSION: 1. Stone in the right mid ureter with mild hydronephrotic changes. 2. Stone in the left renal pelvis with slight dilatation of the pelvic calyceal system. Reviewed, dictated and finalized at location A. IMPRESSION: 1. Stone in the right mid ureter with mild hydronephrotic changes. 2. Stone in the left renal pelvis with slight dilatation of the pelvic calycea l system.
--- NOTE | ~2024-03-31 | XR_ITS ---
XR abdomen/kub 1V Ordering provider: Re Raza PA-C History: . singh stones . Comparison: August 11, 2022 FINDINGS: BOWEL: Nonobstructive bowel gas pattern. ORGANOMEGALY: None. SIGNIFICANT PATHOLOGIC CALCIFICATIONS: Stone seen in the left renal area measuring 1.8 cm.. OTHER: No free air is seen under the diaphragm. Degenerative disc disease at the level of L5-S1. IMPRESSION: NO ACUTE ABDOMINAL FINDINGS. Left kidney stone measuring 1.8 cm.. Reviewed, dictated and finalized at location A.
[2024-03-31 15:27] VITALS: BP 135/73; PULSE 74; RESP 16; TEMP 36.8; O2SAT 100
--- NOTE | 2024-03-31 16:24 | ED.GENADULT ---
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 HEAD: Normocephalic, atraumatic. CHEST: Clear to auscultation. ?No respiratory distress. HEART: Regular rate and rhythm.? NEURO: ?Alert and oriented x3. Patient screened in triage and initial orders placed.? ?Additional care and disposition to be based upon?diagnostic testing and treatment. 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 HEAD: Normocephalic, atraumatic. CHEST: Clear to auscultation. ?No respiratory distress. HEART: Regular rate and rhythm.? NEURO: ?Alert and oriented x3. Patient screened in triage and initial orders placed.? ?Additional care and disposition to be based upon?diagnostic testing and treatment. <Re Raza PA-C - Last Filed: 03/31/24 19:33> Source: patient and old records reviewed <ANMOL Bowers Last Filed: 03/31/24 19:33> Mode of arrival: ambulatory <ANMOL Bowers Last Filed: 03/31/24 19:33> Limitations: no limitations <Re Raza PA-C - Last Filed: 03/31/24 19:33> History of Present Illness HPI narrative: Agree with above. Patient is 48-year-old male who presents the ED with report of right flank pain. Patient reports a long history of kidney stones, currently sees Dr. Barone. reports he developed pain around 2:00 p.m. today, felt similar to his previous kidney stones. Present throughout right flank region, does intermittently radiate to right lower abdomen. Reports nausea with vomiting. Denies difficulty urinating, dysuria, hematuria. Denies fevers. Patient did take a hydrocodone prior to arrival and reports mild improvement of pain currently. <Re Raza PA-C - Last Filed: 03/31/24 19:33> Related Data Allergies/adverse reactions: Allergies Allergy/AdvReac Type Severity Reaction Status Date / Time No Known Allergies Allergy Verified 03/31/24 18:33 <Herlinda Wu, LEAD LEVEL DESIGNER - Last Filed: 03/31/24 19:41> Review of Systems Review of Systems: CONSTITUTIONAL: Denies fever, chills, or sweats. GASTROINTESTINAL: See HPI. GENITOURINARY: Denies dysuria or hematuria. MUSCULOSKELETAL: See HPI. <Re Raza PA-C - Last Filed: 03/31/24 19:33> All systems reviewed & are unremarkable except as noted in HPI and below <Re Raza PA-C - Last Filed: 03/31/24 19:33> [facility] Past Medical History Medical History: Medical History Kidney stones 1998 Obstructive sleep apnea Urolithiasis <Herlinda Wu, LEAD LEVEL DESIGNER - Last Filed: 03/31/24 19:41> Surgical History Surgical History: Surgical History Previous back surgery 05/18 micro-discectomy S/P ureteral stent placement <Herlinda Wu, LEAD LEVEL DESIGNER - Last Filed: 03/31/24 19:41> Family History Family History: Family History Father Cerebrovascular accident Legally blind Other Kidney stones Previous back surgery <Herlinda Wu, LEAD LEVEL DESIGNER - Last Fi
[2024-03-31 17:26] LABS: Basophils Absolute Auto 0.1 K/mm3 (0.0-0.1); Basophils Percent Auto 0.6 % (0.2-1.2); Eosinophils Absolute Auto 0.1 K/mm3 (0-0.3); Eosinophils Percent Auto 1.1 % (0-4.4); Hematocrit 45.3 % (42.0-52.0); Hemoglobin 16.6 g/dL (14.0-18.0); Immature Granulocyte Absolute 0.05 K/mm3 (0.00-0.031); Immature Granulocyte Percent A 0.5 % (0-0.5); Lymphocytes Absolute Auto 1.44 K/mm3 (0.9-3.2); Lymphocytes Percent Auto 13.6 % (18.3-44.2); Mean Corpuscular HGB Conc 36.6 g/dl (32-36); Mean Corpuscular Hemoglobin 32.4 pg (26-34); Mean Corpuscular Volume 88.3 fl (80-100); Mean Platelet Volume 9.2 fl (7.4-10.4); Monocytes Absolute Auto 0.9 K/mm3 (0.1-0.6); Monocytes Percent Auto 8.2 % (2.6-8.5); Platelet Count Result 222 k/mm3 (150-375); Red Blood Count 5.13 M/mm3 (4.6-6.20); Red Cell Distribution Width 12.2 % (11.5-14.5); White Blood Count 10.6 K/mm3 (4.5-10.0)
[2024-03-31 17:34] LABS: Appearance Urine Clear (Clear); Bacteria Urine None Seen /hpf; Bilirubin Urine Negative (Negative); Blood Urine 3+ (Negative); Color Urine Yellow (Yellow); Glucose Urine UA Negative (Negative); Ketones Urine Negative (Negative); Leukocyte Esterase Ur 1+ LEU/UL (Negative); Nitrate Urine Negative (Negative); Protein Urine 2+ mg/dL (Negative); RBC Urine >100 /hpf (0-2); Specific Grav Ur 1.021 (1.001-1.035); Squamous Epithelial Cell Urine None Seen /hpf (Few); WBC Urine 21-50 /hpf (0-3)
[2024-03-31 17:35] LABS: Alanine Aminotransferase 36 U/L (6-50); Albumin Level 4.7 g/dL (3.5-5.1); Alkaline Phosphatase 120 U/L (38-126); Anion Gap 6 mmol/L (4-12); Aspartate Amino Transferase 27 U/L (17-59); Blood Urea Nitrogen 16 mg/dL (9-20); Calcium 9.2 mg/dL (8.4-10.2); Carbon Dioxide 26 mmol/L (22-30); Chloride 105 mmol/L (98-107); Estimated CRCL calculation 84 ml/min; Estimated Glomerular Filt Rate > 60; Glucose 89 mg/dL (65-110); Potassium 4.1 mmol/L (3.4-5.0); Sodium 137 mmol/L (137-145)
[2024-03-31 17:42] LABS: Add Urine Microscopic? YES
--- NOTE | 2024-03-31 18:05 | ED.BACK ---
HPI - Back Pain/Injury General Chief Complaint: Back Pain/Injury Stated Complaint: kidney stone Time Seen by Provider: 03/31/24 16:24 Source: patient and old records reviewed Mode of arrival: ambulatory Limitations: no limitations History of Present Illness HPI Narrative: Patient is 48-year-old male who presents the ED with report of right flank pain. Patient reports a long history of kidney stones, currently sees Dr. Barone. reports he developed pain around 2:00 p.m. today, felt similar to his previous kidney stones. Present throughout right flank region, does intermittently radiate to right lower abdomen. Reports nausea with vomiting. Denies difficulty urinating, dysuria, hematuria. Denies fevers. Patient did take a hydrocodone prior to arrival and reports mild improvement of pain currently. Related Data Allergies Allergy/AdvReac Type Severity Reaction Status Date / Time No Known Allergies Allergy Verified 11/13/23 09:11 Review of Systems Review of Systems: CONSTITUTIONAL: Denies fever, chills, or sweats. GASTROINTESTINAL: See HPI. GENITOURINARY: Denies dysuria or hematuria. MUSCULOSKELETAL: See HPI. All systems reviewed & are unremarkable except as noted in HPI and below PMF Past Medical History Medical History Kidney stones 1998 Obstructive sleep apnea Urolithiasis Surgical History Surgical History Previous back surgery 05/18 micro-discectomy S/P ureteral stent placement Family History Family History Father Cerebrovascular accident Legally blind Other Kidney stones Previous back surgery Social History Social History Smoking status: Never smoker Tobacco type: smokeless tobacco Alcohol intake: current Alcohol use details: Socially Substance use: never Substance use type: does not use Lack of Transportation: No Lack of Food: Never True Current Housing: I Have Housing Concerned About Future Housing: No Difficulty Paying Gas/Electric Bills: No Difficulty Paying for Meds: No Currently Unemployed: No Education: Master's Degree or Higher Difficulty w/ Childcare or Family Care: No Living arrangements: with family Occupation/Education: occupation Gender identity (if verbalized by the patient): Male Exam Narrative: GENERAL: Well appearing, Obese with BMI of 30.4, non-toxic, in no acute distress. HEAD: Normocephalic, atraumatic. RESPIRATORY: Airway patent, respirations nonlabored. Clear to auscultation bilaterally, no rales, rhonchi, wheezing. CARDIOVASCULAR: Regular rate and rhythm without murmurs, rubs, or gallops. ABDOMINAL: Soft, nondistended. Normoactive BS. no significant tenderness on abdomen. Mild tenderness throughout right lumbar region/flank region. MUSCULOSKELETAL: Moves all extremities. No gross deformities. SKIN: Warm, dry, normal color. NEURO: A&O X3. Speech clear. PSYCHIATRIC: Appropriate mood and affect. Normal interaction. Course Vital Signs Vital signs: Vital Signs Temperature 98.3 F 03/31/24 15:27 Pulse Rate 74 03/31/24 15:27 Respiratory Rate 16 03/31/24 15:27 Blood Pressure 135/73 03/31/24 15:27 Pulse Oximetry 100 03/31/24 15:27 Temperature 98.3 F 03/31/24 15:27 Pulse Rate 74 03/31/24 15:27 Respiratory Rate 16 03/31/24 15:27 Blood Pressure 135/73 03/31/24 15:27 Pulse Oximetry 100 03/31/24 15:27 MDM - Back Pain/Injury MDM Narrative Medical decision making narrative: Patient presented to ED with recurrent kidney stone, developed pain today throughout his right flank region. Vital signs are stable upon arrival. Patient afebrile. Cbc within both count 10.1. CMP unremarkable. Stable kidney function. Normal LFTs. Urinal
[2024-03-31] MEDS: ONDANSETRON INJ 4 MG/2 ML VIAL IV PUSH (18:27)
[2024-03-31] MEDS: SODIUM CHLORIDE 0.9% IV 1,000 ML 999 ML IV CONT (18:27)
[2024-03-31] MEDS: MORPHINE SULFATE (*CRX) 4 MG/ML INJ IV PUSH (18:27)
[2024-03-31 18:32] VITALS: BP 135/79; PULSE 87; RESP 18; O2SAT 98
[2024-03-31 19:19] VITALS: BP 130/82; PULSE 79; RESP 15; O2SAT 100
== END 2024-03-31 19:20 | disposition home or self-care (01) ==
PROVIDERS: Nurse Practitioner Family; Emergency Provider Physician Assistant; PCP Emergency Medicine
DX: N20.2 Calculus of kidney with calculus of ureter (principal); R82.90 Unspecified abnormal findings in urine; G47.33 Obstructive sleep apnea (adult) (pediatric)
CPT/HCPCS: 36415; 74018; 74176; 80053; 81001; 85025; 87086; 87088; 96365; 96375; 99284; J0696; J2270; J2405; J7030

== ENCOUNTER 2024-04-02 12:33 | Day surgery (SDC) | payer OTHER, SELFPAY ==
[2024-04-02] VITALS (9 sets, daily range): BP systolic 121–136; BP diastolic 75–84; PULSE 67–91; RESP 12–16; TEMP 36.1–36.9; O2SAT 97–99; BMI 30.2
--- NOTE | ~2024-04-02 | XR_ITS ---
EXAMINATION: XR abdomen/kub 1V DATE: 04/02/2024 12:47 INDICATION: Kidney stone. TECHNIQUE: A supine view of the abdomen on 2 radiographs was obtained. COMPARISON: CT abdomen and pelvis 03/31/2024 FINDINGS: There are no dilated loops of bowel. There is a 15 mm stone in left renal pelvis. IMPRESSION: 1. 15 mm stone in left renal pelvis. Reviewed, dictated and finalized at location A.
--- NOTE | 2024-04-02 08:19 | PC.NURSE ---
Report to the Outpatient Waiting Room, entrance under the green pavilion located off [facility], at time _1230_ on date _[id number]_. Planned Procedure Time: _230pm_. Time changes happen often and if your time is changed the preop area will call you the afternoon before. - You and your visitor will be asked to self-screen and do not enter if you have any COVID symptoms. - A mask is optional within the hospital at this time. Patients may have clear liquids (water, carbonated beverages, clear teas, apple juice) until 3 hours prior to surgery with a maximum of 20 ounces. - No food from midnight until time of surgery Take the following medications with a SIP of water the morning of surgery: ___Cephalexin and if needed pain or nausea med. DO NOT STOP ANY OF YOUR OTHER PRESCRIPTION MEDICATIONS PRIOR TO SURGERY ?EXCEPT THE FOLLOWING Medications to discontinue per physician None Date to take last dose Please no make-up, nail french, hairspray, perfume, deodorant, or body powder the day of surgery. No jewelry (including any body piercings) or valuables the day of surgery, leave them at home. Please take a shower or bath the night before, or the morning of, surgery with an antibacterial soap. Wear comfortable, loose fitting clothing. - Jewelry must be removed prior to entering the operating room. Rings and piercings that are not removed may be cut off. - The hospital will not accept responsibility for valuables. - Please leave all valuables, including medications, at home the day of surgery. If you are going home after surgery, a licensed front load trash truck driver must drive you home. - NO public transportation without another adult if you receive anesthesia. - We recommend that an adult stay with you for 24 hours following discharge. - We also recommend that you do not drive, make important decision, drink alcoholic beverages, or take any drugs that were not prescribed by your health care provider for at least 24 hours after your discharge time. Follow any additional instructions given to you from your surgeon. If you or anyone in your household have experienced Covid symptoms in the past week, please notify your surgeon or the nurse liaison at the phone number below for possible testing. Telephone instructions given to __Brett___and asked if any additional questions and then verbalized understanding. Patient advised to call surgeon office or pre surgery nurse liaison [phone] if any additional questions.
[2024-04-02 13:20] LABS: Prothrombin Time 13.3 Seconds (11.1-14.7)
[2024-04-02 13:21] LABS: Partial Thromboplastin Time 26.4 Seconds (22.3-36.8)
--- NOTE | 2024-04-02 14:13 | WPDANESEPPF ---
Anes - Initial Pre Proc Eval Procedure: Operation Date: 04/02/24 14:30 Proposed Procedures p Right Extracorporeal Shock Wave Lithotripsy - Rajan Smith MD Date/Time: 04/02/24 14:13 Surgeon: Rajan Smith MD Pre Op Diagnosis: right ureteral stone Patient Data Age: 48 Gender: M Height: 1.78 m Weight: 95.4 kg Last Vital Signs Temp 36.9 C 04/02/24 12:40 Pulse 91 04/02/24 12:40 Resp 16 04/02/24 12:40 BP 121/83 04/02/24 12:40 Pulse Ox 98 04/02/24 12:40 O2 Del Method Room Air 04/02/24 12:40 Allergies Allergy/AdvReac Type Severity Reaction Status Date / Time No Known Allergies Allergy Verified 04/02/24 08:08 Home Medications Medication Instructions Recorded Confirmed Type sildenafil 50 mg tablet (Viagra) 50 mg PO DAILY PRN sexual activity 04/29/23 04/02/24 Rx #10 tabs eszopiclone 1 mg tablet 1 mg PO QHS #30 tabs 02/04/24 04/02/24 Rx cephalexin 500 mg capsule 500 mg PO Q6H 7 days #28 caps 03/31/24 04/02/24 Rx ondansetron 4 mg disintegrating 4 mg PO Q8H PRN nausea and 03/31/24 04/02/24 Rx tablet vomiting #15 tabs oxycodone 5 mg tablet 5 mg PO Q6H PRN pain #20 tabs 03/31/24 04/02/24 Rx tamsulosin 0.4 mg capsule (Flomax) 0.4 mg PO DAILY #7 caps 03/31/24 04/02/24 Rx Laboratory Tests 04/02/24 13:06 PT 13.3 Seconds (11.1-14.7) INR 1.0 APTT 26.4 Seconds (22.3-36.8) Patient hx anesthesia problems: none Family hx anesthesia problems: none Results Review: All pre-operative results and documents have been reviewed as part of the pre-operative evaluation. [facility] Past Medical History Medical History Kidney stones 1999 Obstructive sleep apnea Urolithiasis Surgical History Surgical History Previous back surgery 05/18 micro-discectomy S/P ureteral stent placement Family History Family History Father Cerebrovascular accident Legally blind Other Kidney stones Previous back surgery Social History Social History Smoking status: Never smoker Tobacco type: smokeless tobacco Alcohol intake: current Alcohol use details: Socially Substance use: never Substance use type: does not use Lack of Transportation: No Lack of Food: Never True Current Housing: I Have Housing Concerned About Future Housing: No Difficulty Paying Gas/Electric Bills: No Difficulty Paying for Meds: No Currently Unemployed: No Education: Master's Degree or Higher Difficulty w/ Childcare or Family Care: No Living arrangements: with family Occupation/Education: occupation Gender identity (if verbalized by the patient): Male Spiritual care concerns: No Anes - Eval Final PreProcedure Day of Procedure 04/02/24 14:13 Patient weight: overweight Heart: regular rate and rhythm Lungs: clear to auscultation Airway: Mallampati scale class II Last oral intake: >/= 8 hours ASA classification: II Emergent: no Anesthetic plan: proceed Anesthesia type and monitoring: general LMA and standard monitoring Results Review: All pre-operative results and documents have been reviewed as part of the pre-operative evaluation. Informed Consent: The patient's anesthetic plan and its attendant risks and benefits were discussed with the patient/family/POA. Questions were solicited and answers provided to the satisfaction of the patient/family/POA.
--- NOTE | 2024-04-02 15:11 | PM.HPGS ---
History of Present Illness History of Present Illness Consent: Risks, benefits, and alternatives have been discussed and questions answered. Patient agrees to proceed with procedure. Chief complaint: right ureteral stone Narrative: Phillip Addison is a 48 year old male who I have treated for kidney stones many moons ago but continues to pass stones spontaneously. He was in the emergency department on 03/31 with a painful obstructing right mid ureteral calculus. This has been managed as an outpatient and he presents now for right ureteral ESWL. In addition to this ureteral stone he has a larger stone in his left kidney which will need attention in the future. He is aware the risk of lithotripsy including, but not limited to, need for additional procedures, hematuria and perinephric hematoma. Review of Systems Review of Systems: All systems reviewed & are unremarkable except as noted in HPI and below PMFSH Past Medical History Medical History Kidney stones 1998 Obstructive sleep apnea Urolithiasis Surgical History Surgical History Previous back surgery 05/18 micro-discectomy S/P ureteral stent placement Family History Family History Father Cerebrovascular accident Legally blind Other Kidney stones Previous back surgery Social History Social History Smoking status: Never smoker Tobacco type: smokeless tobacco Alcohol intake: current Alcohol use details: Socially Substance use: never Substance use type: does not use Lack of Transportation: No Lack of Food: Never True Current Housing: I Have Housing Concerned About Future Housing: No Difficulty Paying Gas/Electric Bills: No Difficulty Paying for Meds: No Currently Unemployed: No Education: Master's Degree or Higher Difficulty w/ Childcare or Family Care: No Living arrangements: with family Occupation/Education: occupation Gender identity (if verbalized by the patient): Male Spiritual care concerns: No Meds Home Medications and Allergies Home Medications Medication Instructions Recorded Confirmed Type sildenafil 50 mg tablet (Viagra) 50 mg PO DAILY PRN sexual activity 04/29/23 04/02/24 Rx #10 tabs eszopiclone 1 mg tablet 1 mg PO QHS #30 tabs 02/04/24 04/02/24 Rx cephalexin 500 mg capsule 500 mg PO Q6H 7 days #28 caps 03/31/24 04/02/24 Rx ondansetron 4 mg disintegrating 4 mg PO Q8H PRN nausea and 03/31/24 04/02/24 Rx tablet vomiting #15 tabs oxycodone 5 mg tablet 5 mg PO Q6H PRN pain #20 tabs 03/31/24 04/02/24 Rx tamsulosin 0.4 mg capsule (Flomax) 0.4 mg PO DAILY #7 caps 03/31/24 04/02/24 Rx Allergies Allergy/AdvReac Type Severity Reaction Status Date / Time No Known Allergies Allergy Verified 04/02/24 08:08 Vital Signs Vital Signs - 24 hr 04/02/24 12:40 Temperature 98.5 F Pulse Rate 91 Respiratory Rate 16 Blood Pressure 121/83 Pulse Oximetry 98 Oxygen Delivery Room Air Exam Const: General: no acute distress Resp: Effort & Inspection: normal respiratory effort GI: Inspection: non-distended GI Palp: No abdominal tenderness and No Guarding due to palpation present (GI) Auscultation: normal bowel sounds Assessment and Plan Assessment and plan (1) Right ureteral stone: Code(s): N20.1 - Calculus of ureter Status: Inactive (2) Calculus of left kidney: Code(s): N20.0 - Calculus of kidney Status: Inactive Assessment and Plan: Right ureteral ESWL. If the stone is difficult to visualize we will also do cystoscopy with right retrograde pyelography.
--- NOTE | 2024-04-02 15:14 | P.HPUP_ITS ---
History and Physical Update Update Date/Time: 04/02/24 15:14 History and Physical has been reviewed, including an updated exam of the patient. There are NO changes in the patient's condition. Risks, benefits, and alternatives have been discussed and questions answered. Patient agrees to proceed with procedure. * Right ureteral ESWL. If the stone is difficult to visualize we will also do cystoscopy with right retrograde pyelography.
[2024-04-02] MEDS: ceFAZolin 2 GM/D5W 50 ML 2 GM/50 ML BAG IVPB (15:28)
[2024-04-02] MEDS: LIDOCAINE HCL 2% GEL UROJET 10 ML PKG MUCOUS MEM (15:38)
[2024-04-02] MEDS: KETOROLAC 30 MG/ML VIAL (*BKC) IV PUSH (16:01)
--- NOTE | 2024-04-02 16:02 | W.PM.PROC2 ---
Procedure Note - Detailed Date of Procedure 04/02/24 Pre-op Diagnosis Right ureteral stone Post-op Diagnosis Same Procedure Performed Cystoscopy, right retrograde pyelography, right ureteroscopy with stone extraction Surgeon Rajan Smith MD Anesthesia General Description of Procedure Patient is brought to the op suite was prepped draped in routine sterile fashion while in dorsal lithotomy position after the uneventful induction of a general LMA anesthetic. In a supine position we tried to localize the stone with fluoroscopy without success. The stone resides over the right mid ureter, over the sacrum. Did flexible cystoscopy with a 16 F flexible cystoscope. There was no urethral stricture with only minimal prostatic hyperplasia. Bladder mucosa is normal without hyperemia. There was no intravesical foreign body neoplasm. He has a single orthotopic ureteral orifice bilaterally. A 0.035 in glidewire was advanced in the right renal pelvis. We looked along the guidewire and still could not see a stone. I performed retrograde pyelography over a [place] catheter, again without success and identifying his stone. I dilated the distal ureter with an 8 F 10 F dilator. Flexible ureteroscopy was undertaken with the 7.5 F flexible ureteral scope. The stone was identified after it had been washed into his more proximal ureter. It is extracted with 1.9 F disposable stone basket. Because of the ease of this manipulation I opted not to place ureteral stent. His CT scan was carefully inspected there were no additional identifiable stones on the right side so I opted not to repeat ureteroscopy. He was taken to recovery room having tolerated the procedure well. Drains No Packing No Pathology Yes Complications No immediate complications Condition Stable
[2024-04-02] MEDS: LACTATED RINGERS 1,000 ML 30 ML IV CONT ×2 (16:07)
[2024-04-02] MEDS: oxyCODONE HCL (*CRX) 5 MG TAB IR PO (16:59)
== END 2024-04-02 17:37 | disposition home or self-care (01) ==
PROVIDERS: PCP Emergency Medicine; Visit Provider Urology
PROC: (CPT 50590; principal; 2024-04-02 14:30)
DX: N20.1 Calculus of ureter (principal); G47.33 Obstructive sleep apnea (adult) (pediatric); Z79.891 Long term (current) use of opiate analgesic
CPT/HCPCS: 52352; 36415; 74018; 82365; 85610; 85730; 88300; A9270; C1758; C1769; J0690; J1885; J2250; J2405; J2704; J3010; J7030; J7120; Q9966

== ENCOUNTER 2024-05-18 11:07 | Outpatient (CLI) | payer OTHER, SELFPAY ==
[2024-05-18 11:50] LABS: Prothrombin Time 14.1 Seconds (11.1-14.7)
[2024-05-18 11:51] LABS: Partial Thromboplastin Time 27.4 Seconds (22.3-36.8)
== END 2024-05-18 11:08 | disposition home or self-care (01) ==
LOC: ANHLAB 11:09
PROVIDERS: PCP Emergency Medicine; Visit Provider Urology
DX: N20.0 Calculus of kidney (principal); Z01.818 Encounter for other preprocedural examination
CPT/HCPCS: 36415; 85610; 85730; 87086

== ENCOUNTER 2024-05-21 00:05 | Day surgery (SDC) | payer OTHER, SELFPAY ==
--- NOTE | 2024-05-14 07:35 | P.HP_ITS ---
History of Present Illness History of Present Illness Consent: Risks, benefits, and alternatives have been discussed and questions answered. Patient agrees to proceed with procedure. Chief complaint: left kidney stone Narrative: Phillip Addison is a 48 year old male who has recently undergone ureteroscopy with stone extraction. He is left with a residual large stone in his left kidney to which we will now turn our attention. He is agreed to left ESWL. He is aware of the risks including, but not limited to, need for additional procedures, hematuria, perinephric hematoma. Review of Systems Review of Systems: All systems reviewed & are unremarkable except as noted in HPI and below PMFSH Past Medical History Medical History Kidney stones 1998 Obstructive sleep apnea Urolithiasis Surgical History Surgical History Previous back surgery 05/18 micro-discectomy S/P ureteral stent placement Family History Family History Father Cerebrovascular accident Legally blind Other Kidney stones Previous back surgery Social History Social History Smoking status: Never smoker Tobacco type: smokeless tobacco Alcohol intake: current Alcohol use details: Socially Substance use: never Substance use type: does not use Lack of Transportation: No Lack of Food: Never True Current Housing: I Have Housing Concerned About Future Housing: No Difficulty Paying Gas/Electric Bills: No Difficulty Paying for Meds: No Currently Unemployed: No Education: Master's Degree or Higher Difficulty w/ Childcare or Family Care: No Living arrangements: with family Occupation/Education: occupation Gender identity (if verbalized by the patient): Male Spiritual care concerns: No Meds Home Medications and Allergies Home Medications Medication Instructions Recorded Confirmed Type sildenafil 50 mg tablet (Viagra) 50 mg PO DAILY PRN sexual activity 04/29/23 05/06/24 Rx #10 tabs eszopiclone 1 mg tablet 1 mg PO QHS #30 tabs 02/04/24 05/06/24 Rx Allergies Allergy/AdvReac Type Severity Reaction Status Date / Time No Known Allergies Allergy Verified 05/06/24 14:01 Exam Const: General: no acute distress Resp: Effort & Inspection: normal respiratory effort GI: Inspection: non-distended GI Palp: No abdominal tenderness and No Guarding due to palpation present (GI) Auscultation: normal bowel sounds Assessment and Plan Assessment and plan (1) Calculus of left kidney: Code(s): N20.0 - Calculus of kidney Status: Inactive Assessment and Plan: * Left ESWL
--- NOTE | 2024-05-17 10:42 | PC.NURSE ---
Report to the Outpatient Waiting Room, entrance under the green pavilion located off [facility], at time _0800__ on date _05/21/24_. Planned Procedure Time: _1000_. Time changes happen often and if your time is changed the preop area will call you the afternoon before. - You and your visitor will be asked to self-screen and do not enter if you have any COVID symptoms. - A mask is optional within the hospital at this time. Patients may have clear liquids (water, carbonated beverages, clear teas, apple juice) until 3 hours prior to surgery with a maximum of 20 ounces. - No food from midnight until time of surgery - Infants may have breast milk until 4 hours before surgery, formula 6 hours prior to surgery. - Children will be allowed to drink immediately following surgery. If applicable, please bring a bottle or sippy cup to assist with drinking. Juice, water, soda, and popsicles are readily available. For infants on formula, please bring formula the day of surgery. Pacifiers are allowed. Take the following medications with a SIP of water the morning of surgery: NONE DO NOT STOP ANY OF YOUR OTHER PRESCRIPTION MEDICATIONS PRIOR TO SURGERY ?EXCEPT THE FOLLOWING Medications to discontinue per physician NONE Date to take last dose Please no make-up, nail japanese, hairspray, perfume, deodorant, or body powder the day of surgery. No jewelry (including any body piercings) or valuables the day of surgery, leave them at home. Please take a shower or bath the night before, or the morning of, surgery with an antibacterial soap. Wear comfortable, loose fitting clothing. Children are encouraged to wear pajamas. - Jewelry must be removed prior to entering the operating room. Rings and piercings that are not removed may be cut off. - The hospital will not accept responsibility for valuables. - Please leave all valuables, including medications, at home the day of surgery. If you are going home after surgery, a licensed [employer] company driver must drive you home. - NO public transportation without another adult if you receive anesthesia. - We recommend that an adult stay with you for 24 hours following discharge. - We also recommend that you do not drive, make important decision, drink alcoholic beverages, or take any drugs that were not prescribed by your health care provider for at least 24 hours after your discharge time. For Pediatric surgeries, we recommend two adults accompany the child home. Follow any additional instructions given to you from your surgeon. If you or anyone in your household have experienced Covid symptoms in the past week, please notify your surgeon or the nurse liaison at the phone number below for possible testing. Telephone instructions given to _PATIENT_and asked if any additional questions and then verbalized understanding. Patient advised to call surgeon office or pre surgery nurse liaison [phone] if any additional questions.
--- NOTE | 2024-05-20 12:16 | P.PNAN_ITS ---
Anes - Initial Pre Proc Eval Procedure: Operation Date: 05/21/24 08:30 Proposed Procedures p Left Extracorporeal Shock Wave Lithotripsy - Rajan Smith MD Date/Time: 05/20/24 12:16 Surgeon: Rajan Smith MD Pre Op Diagnosis: left kidney stone Patient Data Age: 48 Gender: M Height: 1.78 m Weight: 95 kg Allergies Allergy/AdvReac Type Severity Reaction Status Date / Time No Known Allergies Allergy Verified 05/21/24 08:31 Home Medications Medication Instructions Recorded Confirmed Type sildenafil 50 mg tablet (Viagra) 50 mg PO DAILY PRN sexual activity 04/29/23 05/06/24 Rx #10 tabs eszopiclone 1 mg tablet 1 mg PO QHS #30 tabs 02/04/24 05/06/24 Rx hydrocodone 5 mg-acetaminophen 325 1 - 2 tablet PO Q6H PRN pain #20 05/21/24 Rx mg tablet tabs Patient hx anesthesia problems: none Family hx anesthesia problems: none Results Review: All pre-operative results and documents have been reviewed as part of the pre- operative evaluation. [facility] Past Medical History Medical History Kidney stones 1998 Obstructive sleep apnea Urolithiasis Surgical History Surgical History Previous back surgery 05/18 micro-discectomy S/P ureteral stent placement Family History Family History Father Cerebrovascular accident Legally blind Other Kidney stones Previous back surgery Social History Social History Smoking status: Never smoker Tobacco type: smokeless tobacco Alcohol intake: current Drinks per week: 3 Alcohol use details: Socially Substance use: never Substance use type: does not use Lack of Transportation: No Lack of Food: Never True Current Housing: I Have Housing Concerned About Future Housing: No Difficulty Paying Gas/Electric Bills: No Difficulty Paying for Meds: No Currently Unemployed: No Education: Master's Degree or Higher Difficulty w/ Childcare or Family Care: No Living arrangements: with family Occupation/Education: occupation Gender identity (if verbalized by the patient): Male Spiritual care concerns: No Anes - Eval Final PreProcedure Day of Procedure 05/20/24 12:16 Patient weight: obese Heart: regular rate and rhythm Lungs: clear to auscultation Airway: Mallampati scale class II Neurological: alert and oriented Last oral intake: >/= 8 hours ASA classification: III Emergent: no Anesthetic plan: proceed Anesthesia type and monitoring: general LMA and standard monitoring Results Review: All pre-operative results and documents have been reviewed as part of the pre- operative evaluation. Informed Consent: The patient's anesthetic plan and its attendant risks and benefits were discussed with the patient/family/POA. Questions were solicited and answers provided to the satisfaction of the patient/family/POA.
[2024-05-21] VITALS (10 sets, daily range): BP systolic 118–146; BP diastolic 74–87; PULSE 75–85; RESP 14–20; TEMP 36.3–36.7; O2SAT 97–100
--- NOTE | ~2024-05-21 | XR_ITS ---
EXAMINATION: XR abdomen/kub 1V DATE: 05/21/2024 06:44 INDICATION: Kidney stone. TECHNIQUE: A supine view of the abdomen on 2 radiographs was obtained. COMPARISON: Abdomen radiographs 04/02/2024, CT abdomen and pelvis 03/31/2024 FINDINGS: There are no dilated loops of bowel. There is a 1.8 cm stone in left renal pelvis. IMPRESSION: 1. 1.8 cm stone in left renal pelvis. Reviewed, dictated and finalized at location A.
--- NOTE | 2024-05-21 05:48 | WPDHPUPDATE1 ---
History and Physical Update Update Date/Time: 05/21/24 05:48 History and Physical has been reviewed, including an updated exam of the patient. There are NO changes in the patient's condition. Risks, benefits, and alternatives have been discussed and questions answered. Patient agrees to proceed with procedure.
[2024-05-21] MEDS: LACTATED RINGERS 1,000 ML 30 ML IV CONT (07:30)
[2024-05-21] MEDS: FAMOTIDINE 20 MG/2 ML VIAL IV PUSH (08:15)
[2024-05-21] MEDS: ceFAZolin 2 GM/D5W 50 ML 2 GM/50 ML BAG IVPB (08:22)
[2024-05-21] MEDS: KETOROLAC 30 MG/ML VIAL (*BKC) IV PUSH (08:52)
--- NOTE | 2024-05-21 08:56 | W.PM.PROC2 ---
Procedure Note - Detailed Date of Procedure 05/21/24 Pre-op Diagnosis Left kidney stone Post-op Diagnosis Same Procedure Performed Left ESWL Surgeon Rajan Smith MD Anesthesia General Description of Procedure The patient was brought to the operative suite where he was placed in the supine position on the [place] lithotripsy table. The focal point of the lithotripter was placed at a 12mm left renal pelvic calculus. A total of 2500 shocks were delivered at a power setting of 4. There appeared to be good fragmentation of the stone. The patient tolerated the procedure well and was taken to the recovery room in good condition. Drains No Packing No Pathology None sent Complications No immediate complications Condition Stable Disposition PACU
[2024-05-21] MEDS: oxyCODONE HCL (*CRX) 5 MG TAB IR PO (10:19)
== END 2024-05-21 10:54 | disposition home or self-care (01) ==
PROVIDERS: PCP Emergency Medicine; Visit Provider Urology
PROC: (CPT 50590; principal; 2024-05-21 08:30)
DX: N20.0 Calculus of kidney (principal); G47.33 Obstructive sleep apnea (adult) (pediatric)
CPT/HCPCS: 50590; 36415; 74018; 85610; 85730; 87086; A9270; J0690; J1100; J1885; J2250; J2405; J2704; J3010; J7120

== ENCOUNTER 2024-05-21 17:12 | Observation (INO) | payer OTHER, SELFPAY ==
[2024-05-21] VITALS (16 sets, daily range): BP systolic 134–170; BP diastolic 79–104; PULSE 95–102; RESP 12–23; TEMP 36.4; O2SAT 96–100
--- NOTE | ~2024-05-21 | CT_ITS ---
CT abdomen pelvis w con Ordering provider: Rosy Younger PA-C History: 48 years Male with . left flank pain, recent lithotripsy . Comparison: None. Technique: CT abdomen and pelvis with IV and without oral contrast. Automated exposure control and it erative reconstruction technique were employed. The dose-length product was 758.90 mGy-cm. 100 mL Omn ipaque 350 was given IV. Findings: VISUALIZED LOWER CHEST: Dependent atelectatic changes UPPER ABDOMINAL ORGANS: Liver: Normal. Gallbladder: Normal. Spleen: Normal. Stomach/duodenum: Normal. Pancreas: Normal. Adrenals: Normal. Kidneys: Stone in the left lower ureter which measures 8 mm with hydronephrotic changes. Stones are s een in the left renal pelvis. Stone in the left kidney lower pole. High-grade Obstruction is suspecte d with perinephric hematoma or fluid collection. PELVIC ORGANS: The bladder shows multiple stones in the right side of the urinary bladder. Wall calci fication is also possible. BOWEL AND MESENTERY: Colon: No evidence of diverticulitis. Normal appendix. Small Bowel: Normal. No obstruction. Peritoneum/mesentery: No free air or free fluid. No mesenteric lymphadenopathy. RETROPERITONEUM: Very Mild atheromatous disease of the abdominal aorta. No retroperitoneal lymphade nopathy. MUSCULOSKELETAL: Superficial soft tissues: The superficial soft tissues are normal. Bones: Degenerative disc changes at the level of L5-S1 otherwise, Normal spine. IMPRESSION: 1. Stone in the left lower ureter with left hydronephrotic changes are identified. Obstruction. 2. Left perinephric hematoma. 3. Multiple left kidney stones. 4. Urinary bladder stone. Reviewed, dictated and finalized at location A. IMPRESSION: 1. Stone in the left lower ureter with left hydronephrotic changes are identif ied. Obstruction. 2. Left perinephric hematoma. 3. Multiple left kidney stones. 4. Urinary bladder stone.
--- NOTE | ~2024-05-21 | XR_ITS ---
EXAMINATION: XR stent kub - surgery DATE: 05/22/2024 10:42 INDICATION: Left ureteral stone. TECHNIQUE: 2 intraoperative fluoroscopic views of the abdomen and pelvis were obtained. I was not pre sent. Fluoroscopy exposure time was 18 seconds. COMPARISON: CT abdomen and pelvis 05/21/2024 FINDINGS: The left-sided retropyelogram demonstrates mild hydronephrosis. The final images demonstrat e a left internal ureteral stent in expected position. IMPRESSION: 1. Mild left hydronephrosis. 2. Left internal ureteral stent in expected position. Reviewed, dictated and finalized at location A.
[2024-05-21] MEDS: MORPHINE SULFATE (*CRX) 4 MG/ML INJ IV PUSH (17:55)
[2024-05-21 18:02] LABS: Basophils Percent Auto 0.2 % (0.2-1.2); Hematocrit 45.3 % (42.0-52.0); Hemoglobin 16.3 g/dL (14.0-18.0); Immature Granulocyte Absolute 0.04 K/mm3 (0.00-0.031); Immature Granulocyte Percent A 0.3 % (0-0.5); Lymphocytes Absolute Auto 0.69 K/mm3 (0.9-3.2); Lymphocytes Percent Auto 5.2 % (18.3-44.2); Mean Corpuscular Hemoglobin 31.8 pg (26-34); Mean Corpuscular Volume 88.5 fl (80-100); Monocytes Absolute Auto 0.6 K/mm3 (0.1-0.6); Monocytes Percent Auto 4.7 % (2.6-8.5); Neutrophils Absolute Auto 11.9 K/mm3 (1.3-6.7); Neutrophils Percent Auto 89.6 % (45.5-73.1); Platelet Count Result 271 k/mm3 (150-375); Red Blood Count 5.12 M/mm3 (4.6-6.20); White Blood Count 13.3 K/mm3 (4.5-10.0)
--- NOTE | 2024-05-21 18:08 | ED.ABDPAIN ---
HPI - Abdominal Pain General Chief Complaint: Urogenital-Male Stated Complaint: left flank pain postop lithotripsy Time Seen by Provider: 05/21/24 17:26 Source: patient Mode of arrival: ambulatory Limitations: no limitations History of Present Illness HPI narrative: This is a 48-year-old male that presents to the emergency department for left flank pain. Reports he had a lithotripsy this morning. He is experiencing severe left flank pain. Radiating into his abdomen. Associated nausea and vomiting. Also reports dysuria and hematuria. Denies fevers. Related Data Allergies Allergy/AdvReac Type Severity Reaction Status Date / Time No Known Allergies Allergy Verified 05/21/24 08:31 Review of Systems Review of Systems: CONSTITUTIONAL: Denies fever GASTROINTESTINAL: Reports abdominal pain, nausea, vomiting GENITOURINARY: Reports dysuria and hematuria. All systems reviewed & are unremarkable except as noted in HPI and below PMFSH Past Medical History Medical History (Updated 05/22/24 @ 01:05 by Rosy Younger PA-C) Kidney stones 1998 Obstructive sleep apnea Urolithiasis Surgical History Surgical History Previous back surgery 05/18 micro-discectomy S/P ureteral stent placement Family History Family History Father Cerebrovascular accident Legally blind Other Kidney stones Previous back surgery Social History Social History Smoking status: Never smoker Tobacco type: smokeless tobacco Alcohol intake: current Drinks per week: 2 Alcohol use details: Socially Substance use: never Substance use type: does not use Do You Feel Safe in your Home?: Yes Lack of Transportation: No Lack of Food: Never True Current Housing: I Have Housing Concerned About Future Housing: No Difficulty Paying Gas/Electric Bills: No Difficulty Paying for Meds: No Currently Unemployed: No Education: Master's Degree or Higher Difficulty w/ Childcare or Family Care: No Living arrangements: with family Occupation/Education: occupation Gender identity (if verbalized by the patient): Male Spiritual care concerns: No Exam Narrative: GENERAL: Well-appearing, well-nourished, and in no acute distress. HEAD: Normocephalic, atraumatic. EYES: EOMI. CHEST: Clear to auscultation. No respiratory distress. No wheezes rales or rhonchi HEART: Regular rate and rhythm. No murmur heard. Normal peripheral pulses. ABDOMEN: Soft, nondistended, normal active bowel sounds. Tender to palpation throughout the abdomen, without guarding EXTREMITIES: Normal range of motion. No edema. SKIN: Warm, dry, no rash. NEURO: No focal deficits. Alert and oriented x3. PSYCH: Normal mood and affect Course Course Emergency Course: Patient and family updated on workup and agree with plan of care Consultations Consultation #1: Spoke with Dr. Herzog about patient and workup who will consult. Patient will be made NPO at midnight Date: 05/21/24 Consultation #2: Spoke with hospitalist about patient and workup who accepts admission Date: 05/21/24 Vital Signs Vital signs: Vital Signs Temperature 97.6 F 05/21/24 17:23 Pulse Rate 98 05/21/24 17:23 Respiratory Rate 16 05/21/24 17:23 Blood Pressure 166/88 H 05/21/24 17:23 Pulse Oximetry 96 05/21/24 17:23 Oxygen Delivery Room Air 05/21/24 17:23 Temperature 98.8 F 05/22/24 00:00 Pulse Rate 96 05/22/24 00:39 Respiratory Rate 16 05/22/24 00:39 Blood Pressure 141/77 H 05/22/24 00:00 Pulse Oximetry 98 05/22/24 00:39 Oxygen Delivery Room Air 05/22/24 00:39 MDM - Abdominal Pain MDM Narrative Medical decision making narrative: Patient presents to the emergency department for worsening left flank pain after lithotripsy this morning. Patient is afebrile an
[2024-05-21 18:11] LABS: Alanine Aminotransferase 29 U/L (6-50); Albumin Level 4.4 g/dL (3.5-5.1); Alkaline Phosphatase 102 U/L (38-126); Anion Gap 11 mmol/L (4-12); Aspartate Amino Transferase 29 U/L (17-59); Bilirubin,Total 2.2 mg/dL (0.2-1.3); Blood Urea Nitrogen 13 mg/dL (9-20); Calcium 9.1 mg/dL (8.4-10.2); Carbon Dioxide 23 mmol/L (22-30); Chloride 101 mmol/L (98-107); Estimated Glomerular Filt Rate 59; Glucose 136 mg/dL (65-110); Lipase 77 U/L (23-300); Potassium 4.1 mmol/L (3.4-5.0); Sodium 135 mmol/L (137-145)
[2024-05-21] MEDS: HYDROmorphone HCL INJ (*CRX) 1 MG/ML SYR 0.5 MG IV PUSH ×3 (19:00→23:16)
[2024-05-21] MEDS: SODIUM CHLORIDE 0.9% IV 1,000 ML 999 ML IV CONT ×2 (20:32→23:15)
--- NOTE | 2024-05-21 20:44 | PM.IMHP ---
H&P: HPI History of Present Illness Date/Time: 05/21/24 20:44 Chief Complaint: flank pain Narrative: this is a 48-year-old male with past medical history significant for urolithiasis, obstructive sleep apnea. Patient is status post lithotripsy comes to the emergency room due to left flank pain, nausea, vomiting, chills. Preliminary workup was significant for perinephric hematoma and a left ureteral stone a urinalysis was significant for numerous WBCs present. Patient has been admitted for further evaluation management and treatment. EXAMINATION: XR abdomen/kub 1V DATE: 05/21/2024 06:44 INDICATION: Kidney stone. TECHNIQUE: A supine view of the abdomen on 2 radiographs was obtained. COMPARISON: Abdomen radiographs 04/02/2024, CT abdomen and pelvis 03/31/2024 FINDINGS: There are no dilated loops of bowel. There is a 1.8 cm stone in left renal pelvis. IMPRESSION: 1. 1.8 cm stone in left renal pelvis. CT abdomen pelvis w con Ordering provider: Rosy Younger PA-C History: 48 years Male with . left flank pain, recent lithotripsy . Comparison: None. Technique: CT abdomen and pelvis with IV and without oral contrast. Automated exposure control and iterative reconstruction technique were employed. The dose-length product was 758.90 mGy-cm. 100 mL Omnipaque 350 was given IV. Findings: VISUALIZED LOWER CHEST: Dependent atelectatic changes UPPER ABDOMINAL ORGANS: Liver: Normal. Gallbladder: Normal. Spleen: Normal. Stomach/duodenum: Normal. Pancreas: Normal. Adrenals: Normal. Kidneys: Stone in the left lower ureter which measures 8 mm with hydronephrotic changes. Stones are seen in the left renal pelvis. Stone in the left kidney lower pole. High-grade Obstruction is suspected with perinephric hematoma or fluid collection. PELVIC ORGANS: The bladder shows multiple stones in the right side of the urinary bladder. Wall calcification is also possible. BOWEL AND MESENTERY: Colon: No evidence of diverticulitis. Normal appendix. Small Bowel: Normal. No obstruction. Peritoneum/mesentery: No free air or free fluid. No mesenteric lymphadenopathy. RETROPERITONEUM: Very Mild atheromatous disease of the abdominal aorta. No retroperitoneal lymphadenopathy. MUSCULOSKELETAL: Superficial soft tissues: The superficial soft tissues are normal. Bones: Degenerative disc changes at the level of L5-S1 otherwise, Normal spine. IMPRESSION: 1. Stone in the left lower ureter with left hydronephrotic changes are identified. Obstruction. 2. Left perinephric hematoma. 3. Multiple left kidney stones. 4. Urinary bladder stone. Review of Systems Review of Systems: flank pain [facility] Past Medical History Medical History (Updated 05/22/24 @ 01:05 by Rosy Younger PA-C) Kidney stones 1998 Obstructive sleep apnea Urolithiasis Surgical History Surgical History Previous back surgery 05/18 micro-discectomy S/P ureteral stent placement Family History Family History Father Cerebrovascular accident Legally blind Other Kidney stones Previous back surgery Social History Social History Smoking status: Never smoker Tobacco type: smokeless tobacco Alcohol intake: current Drinks per week: 2 Alcohol use details: Socially Substance use: never Substance use type: does not use Do You Feel Safe in your Home?: Yes Lack of Transportation: No Lack of Food: Never True Current Housing: I Have Housing Concerned About Future Housing: No Difficulty Paying Gas/Electric Bills: No Difficulty Paying for Meds: No Currently Unemployed: No Education: Master's Degree or Higher Difficulty w/ Childcare or Family Care: No Living arrangements: with family Occupation/Education: occupation Gender identity (if verbaliz
--- NOTE | 2024-05-21 20:52 | PC.NURSE ---
patient unable to urinate but declines straight catheter. educated patient use use call light with any urge to urinate to collect a sample. IV fluids administered to assist with urination
[2024-05-21 23:03] LABS: Add Urine Microscopic? YES; Appearance Urine Turbid (Clear); Bacteria Urine None Seen /hpf; Bilirubin Urine Negative (Negative); Blood Urine 3+ (Negative); Color Urine Dark Yellow (Yellow); Glucose Urine UA Negative (Negative); Ketones Urine Negative (Negative); Leukocyte Esterase Ur 1+ LEU/UL (Negative); Need Manual Microscopic Reviewed; Nitrate Urine Negative (Negative); Non Pathogenic Casts 0-2; Protein Urine 2+ mg/dL (Negative); RBC Urine >100 /hpf (0-2); Specific Grav Ur > 1.045 (1.001-1.035); Squamous Epithelial Cell Urine None Seen /hpf (Few); Urobilinogen Urine 0.2 mg/dL (<2.0); WBC Urine 21-50 /hpf (0-3); pH Urine 5.5 (5.0-9.0)
--- NOTE | 2024-05-21 23:10 | PC.NURSE ---
Care and report given to CARMEL Sharp. all questions answered.
[2024-05-22] VITALS (18 sets, daily range): BP systolic 119–144; BP diastolic 64–88; PULSE 59–102; RESP 14–22; TEMP 36.4–37.6; O2SAT 93–99
--- NOTE | 2024-05-22 00:26 | ADMGEN ---
This patient, Phillip Addison, was admitted to Medical Room 247-. Patient/family oriented to hospital policies and general routines including ID bracelet, bed and alarms, visiting hours, pain management, procedures, bathroom and other care routines, personal items, smoking policy, room service/diet, and visiting hours. Information on how to activate the Rapid Response Team has been discussed. Patient/Family are encouraged to report perceived risks to care and to ask questions if they do not understand what they are told or what they should do.
[2024-05-22 00:27] LABS: Lactic Acid Reflex 1.8 mmol/L (0.7-2.0)
[2024-05-22] MEDS: SODIUM CHLORIDE 0.9% IV 1,000 ML 125 ML IV CONT (02:00)
[2024-05-22] MEDS: PIPERACILLN/TAZ 3.375GM/NS50ML 3.375 GM/50 ML BAG IVPB ×3 (02:00→13:07)
[2024-05-22] MEDS: HYDROmorphone HCL INJ (*CRX) 1 MG/ML SYR IV PUSH ×2 (02:07→09:24)
[2024-05-22] MEDS: VANCOMYCIN 1,250 MG/NS 250 ML 1,250 MG/250 ML BAG 166.67 MG IVPB ×2 (02:40→04:41)
[2024-05-22 05:40] LABS: Basophils Percent Auto 0.2 % (0.2-1.2); Eosinophils Percent Auto 0.1 % (0-4.4); Hematocrit 38.4 % (42.0-52.0); Hemoglobin 13.3 g/dL (14.0-18.0); Immature Granulocyte Absolute 0.06 K/mm3 (0.00-0.031); Immature Granulocyte Percent A 0.4 % (0-0.5); Lymphocytes Absolute Auto 1.57 K/mm3 (0.9-3.2); Lymphocytes Percent Auto 10.8 % (18.3-44.2); Mean Corpuscular HGB Conc 34.6 g/dl (32-36); Mean Corpuscular Hemoglobin 31.4 pg (26-34); Mean Corpuscular Volume 90.8 fl (80-100); Mean Platelet Volume 9.2 fl (7.4-10.4); Monocytes Absolute Auto 1.4 K/mm3 (0.1-0.6); Monocytes Percent Auto 9.6 % (2.6-8.5); Neutrophils Absolute Auto 11.5 K/mm3 (1.3-6.7); Neutrophils Percent Auto 78.9 % (45.5-73.1); Platelet Count Result 214 k/mm3 (150-375); Red Blood Count 4.23 M/mm3 (4.6-6.20); White Blood Count 14.5 K/mm3 (4.5-10.0)
--- NOTE | 2024-05-22 08:53 | PM.IMPN ---
Progress Note: A&P Assessment and Plan (1) Urolithiasis: Code(s): N20.9 - Urinary calculus, unspecified Status: Acute Assessment and Plan: 8 mm left ureter stone obstructing with hydronephrosis. Patient is status post ESWL from 05/21. UA shows turbid colored urine with specific gravity greater than 1.045, 2+ protein, 3+ blood, 1+ leuks, and pyuria. Leukocytosis 14.5 today Urology consulted and is taking patient for cystoscopy today Normal saline 125 mL an hour--now on a diet. Stop IV fluids. Patient was started on Zosyn and vancomycin. Low risk for MRSA, stopping vancomycin. Stopping Zosyn and putting on Rocephin. Urine and blood cultures are pending PRN pain medications with Toradol and Dilaudid. Flomax and strain all urine (2) Obstructive sleep apnea: Code(s): G47.33 - Obstructive sleep apnea (adult) (pediatric) Status: Acute Assessment and Plan: KRISTEN and compliant with CPAP Plan DVT prophylaxis: SCD Glycemic control: na Code Status: FULL Disposition: 48-year-old male who presents status post as well with complaints of abdominal pain found to have 8 mm left obstructing stone. Urology has been consulted and he is going for a cystoscopy with stent placement. He was started on IV antibiotics. Urine and blood cultures pending. Medication reconciliation obtained via the following: Nurse completed on admission The file time of this note does not necessarily represent the time the patient was seen. Subjective Date/time seen: 05/22/24 08:53 Interval history: This is a 48-year-old male with past medical history significant for urolithiasis, obstructive sleep apnea who is status post lithotripsy from 05/21 comes emergency room with left flank pain, nausea, vomiting, and chills. CT of the abdomen pelvis showed a 8 mm stone in the left lower ureter with left hydronephrotic changes concerning for obstruction. 05/22: Patient is seen after his procedure. He is in no acute distress. He states his pain is improved but he does have discomfort from the stent. Plan to monitor him overnight and discharge tomorrow. Review of Systems Review of Systems: All systems reviewed & are unremarkable except as noted in HPI and below Exam Narrative: General: well appearing, appears stated age. HEENT: normocephalic, atraumatic. Mucous membranes moist. EOMI, PERRLA, bilateral sclera anicteric, no conjunctival injection. Neck supple without JVD, lymphadenopathy, or bruit. Respiratory: clear to auscultation bilaterally. No rales/rhonic/wheezes. Cardiovascular: Regular rate and rhythm, normal S1-S2 upon auscultation. No murmurs, rubs, or clicks. PMI is nondisplaced, capillary refill less than 3 second. Abdomen: Soft, round, no pulsatile masses, nondistended mildly tender to deep palpation of right upper quad. No rebound, no guarding. No CVA tenderness, no hepatosplenomegaly. Bowel sounds present to all four quadrants. No high pitch or tinkling sounds, resonant to percussion. Tenderness to left lower quadrant. Extremities: No cyanosis, clubbing, or edema present. Pulses are palpable 2/2. Active ROM to all four extremities. Neuro: Alert and orientated x 4. PERRLA. Cranial nerves 2-12 intact without focal deficit. Skin: Warm, dry, and intact, without rash, erythema, or lesion. Lines: Incisions: Psych: pleasant, cooperative, normal speech, normal affect, no hallucinations, no dysarthria Objective Data Vital Signs Vital Signs: Vital Signs - 24 hr 05/21/24 17:23 05/21/24 18:01 05/21/24 18:44 Temperature 97.6 F Pulse Rate 98 100 95 Respiratory Rate 16 16 15 Blood Pressure 166/88 H 153/90 H Pulse Oximetry 96 99 98 Oxygen Delivery Room Air 05/21/24 18:46 05/21/24 19:01 05/21/24 19:26 Temperature Pulse Rate 96 95 97 Respiratory Rate 14 16 16 Blood Pressure 148/89
--- NOTE | 2024-05-22 09:11 | WPDURCON ---
Assessment and Plan Assessment and plan (1) Ureterolithiasis: Code(s): N20.1 - Calculus of ureter Status: Acute Plan 48-year-old male status post left renal ESWL 05/21/2024 now with mid to distal left ureteral stone and uncontrolled flank pain -discussed options including continued trial of medical expulsive therapy although the stones pretty big. We discussed ureteroscopy, laser lithotripsy, stent placement. He would like to proceed. Hesitant about the stent as he has had before but we discussed with the size and location of this stone he really does need a stent afterwards. Discussed removal via dangle ideally or in the office if things look pretty beat up. All questions answered, proceed as scheduled. Urology Consult Note HPI Date Seen: 05/22/24 Requesting Physician: Maribel Tellez APRN Primary Care Provider: Pal Ramos MD Consult Narrative Narrative: Phillip Addison is a 48 year old male Who had a left renal ESWL yesterday with Dr. Smith. He has a long history of stones, 1st was at age 21 [address] Smith. He has had both ureteroscopy and ESWL. ESWL yesterday was uncomplicated, he went home and passed some stone but then developed severe left flank pain. He presented to the ER. Labs okay, he was found to have a small renal hematoma and about a 1 cm mid to distal left ureteral stone with some dust otherwise in the upper tract and in the bladder. WBC 14 Hemoglobin 16 Creatinine 1.3 Urinalysis does not look infected Review of Systems Review of Systems: All systems reviewed & are unremarkable except as noted in HPI and below PMFSH Past Medical History Medical History Kidney stones 1998 Obstructive sleep apnea Urolithiasis Surgical History Surgical History Previous back surgery 05/18 micro-discectomy S/P ureteral stent placement Family History Family History Father Cerebrovascular accident Legally blind Other Kidney stones Previous back surgery Social History Social History Smoking status: Never smoker Tobacco type: smokeless tobacco Alcohol intake: current Drinks per week: 2 Alcohol use details: Socially Substance use: never Substance use type: does not use Do You Feel Safe in your Home?: Yes Lack of Transportation: No Lack of Food: Never True Current Housing: I Have Housing Concerned About Future Housing: No Difficulty Paying Gas/Electric Bills: No Difficulty Paying for Meds: No Currently Unemployed: No Education: Master's Degree or Higher Difficulty w/ Childcare or Family Care: No Living arrangements: with family Occupation/Education: occupation Gender identity (if verbalized by the patient): Male Spiritual care concerns: No Meds Home Medications and Allergies Home Medications Medication Instructions Recorded Confirmed Type sildenafil 50 mg tablet (Viagra) 50 mg PO DAILY PRN sexual activity 04/29/23 05/22/24 Rx #10 tabs eszopiclone 1 mg tablet 1 mg PO QHS #30 tabs 02/04/24 05/22/24 Rx hydrocodone 5 mg-acetaminophen 325 1 - 2 tablet PO Q6H PRN pain #20 05/21/24 05/22/24 Rx mg tablet tabs Allergies Allergy/AdvReac Type Severity Reaction Status Date / Time No Known Allergies Allergy Verified 05/21/24 08:31 Vital Signs Vital Signs - 24 hr 05/21/24 17:23 05/21/24 18:01 05/21/24 18:44 Temperature 36.4 C Pulse Rate 98 100 95 Respiratory Rate 16 16 15 Blood Pressure 166/88 H 153/90 H Pulse Oximetry 96 99 98 Oxygen Delivery Room Air 05/21/24 18:46 05/21/24 19:01 05/21/24 19:26 Temperature Pulse Rate 96 95 97 Respiratory Rate 14 16 16 Blood Pressure 148/89 H 144/87 H 152/92 H Pulse Oximetry 98 99 99 Oxygen Delivery 05/21/24 19:31
--- NOTE | 2024-05-22 10:07 | WPDANESEPPF ---
Anes - Initial Pre Proc Eval Procedure: Operation Date: 05/22/24 10:00 Proposed Procedures p Cysto, RPG, Stone Ext, Stent Placement(Left) - Shaheen Herzog MD Date/Time: 05/22/24 10:07 Surgeon: Maribel Tellez APRN Pre Op Diagnosis: Ureterolithiasis, perinephric hematoma Patient Data Age: 48 Gender: M Height: 1.78 m Weight: 95 kg Last Vital Signs Temp 36.7 C 05/22/24 08:00 Pulse 81 05/22/24 08:00 Resp 16 05/22/24 08:00 BP 135/77 05/22/24 08:00 Pulse Ox 98 05/22/24 08:57 O2 Del Method Room Air 05/22/24 08:57 Allergies Allergy/AdvReac Type Severity Reaction Status Date / Time No Known Allergies Allergy Verified 05/21/24 08:31 Home Medications Medication Instructions Recorded Confirmed Type sildenafil 50 mg tablet (Viagra) 50 mg PO DAILY PRN sexual activity 04/29/23 05/22/24 Rx #10 tabs eszopiclone 1 mg tablet 1 mg PO QHS #30 tabs 02/04/24 05/22/24 Rx hydrocodone 5 mg-acetaminophen 325 1 - 2 tablet PO Q6H PRN pain #20 05/21/24 05/22/24 Rx mg tablet tabs Laboratory Tests 05/21/24 05/21/24 05/21/24 17:48 21:56 23:56 WBC 13.3 H K/mm3 (4.5-10.0) RBC 5.12 M/mm3 (4.6-6.20) Hgb 16.3 g/dL (14.0-18.0) Hct 45.3 % (42.0-52.0) MCV 88.5 fl (80-100) MCH 31.8 pg (26-34) MCHC 36.0 g/dl (32-36) RDW 12.0 % (11.5-14.5) Plt Count 271 k/mm3 (150-375) MPV 9.0 fl (7.4-10.4) Immature Gran % (Auto) 0.3 % (0-0.5) Neut % (Auto) 89.6 H % (45.5-73.1) Lymph % (Auto) 5.2 L % (18.3-44.2) [place] % (Auto) 4.7 % (2.6-8.5) Eos % (Auto) 0.0 % (0-4.4) Baso % (Auto) 0.2 % (0.2-1.2) Lymph # (Auto) 0.69 L K/mm3 (0.9-3.2) [place] # (Auto) 0.6 K/mm3 (0.1-0.6) Eos # (Auto) 0.0 K/mm3 (0-0.3) Baso # (Auto) 0.0 K/mm3 (0.0-0.1) Abs Immat Gran (auto) 0.04 H K/mm3 (0.00-0.031) Absolute Neuts (auto) 11.9 H K/mm3 (1.3-6.7) Absolute Nucleated RBC 0.000 K/mm3 (0.0-0.012) Nucleated RBC % 0.0 % (0.0-0.2) Sodium 135 L mmol/L (137-145) Potassium 4.1 mmol/L (3.4-5.0) Chloride 101 mmol/L (98-107) Carbon Dioxide 23 mmol/L (22-30) Anion Gap 11 mmol/L (4-12) BUN 13 mg/dL (9-20) Creatinine 1.30 mg/dL (0.7-1.3) Estim Creat Clear Calc Not Reportable Estimated GFR 59 (59 - ) Glucose 136 H mg/dL (65-110) Lactic Acid 1.8 mmol/L (0.7-2.0) Calcium 9.1 mg/dL (8.4-10.2) Total Bilirubin 2.2 H mg/dL (0.2-1.3) AST 29 U/L (17-59) ALT 29 U/L (6-50) Alkaline Phosphatase 102 U/L (38-126) Total Protein 7.0 g/dL (6.3-8.2) Albumin 4.4 g/dL (3.5-5.1) Lipase 77 U/L (23-300) Urine Color Dark yellow (Yellow) Urine Appearance Turbid H (Clear) Urine pH 5.5 (5.0-9.0) Ur Specific [place] > 1.045 H (1.001-1.035) Urine Protein 2+ H mg/dL (Negative) Urine Glucose (UA) Negative mg/dL (Negative) Urine Ketones Negative mg/dL (Negative) Ur Blood (Man) 3+ H (Negative) Urine Nitrate Negative (Negative) Urine Bilirubin Negative (Negative) Urine Urobilinogen 0.2 mg/dL (<2.0) Add Ur Microanalysis Reviewed Leukocyte Esterase Rfl 1+ H ESTRELLA/UL (Negative) Urine RBC >100 H /hpf (0-2) Urine WBC 21-50 H /hpf (0-3) Ur Squamous Epith Cells None seen /hpf (Few) Urine Bacteria None seen /hpf Urine Casts 0-2 05/22/24 05:11 WBC 14.5 H K/mm3 (4.5-10.0) RBC 4.23 L M/mm3 (4.6-6.20) Hgb 13.3 L D g/dL (14.0-18.0) Hct 38.4 L %
[2024-05-22] MEDS: LACTATED RINGERS 1,000 ML 30 ML IV CONT (10:30)
--- NOTE | 2024-05-22 10:43 | W.PM.PROC2 ---
Procedure Note - Detailed Date of Procedure 05/22/24 Pre-op Diagnosis Ureterolithiasis, perinephric hematoma Post-op Diagnosis Same Procedure Performed Cystoscopy, left ureteroscopy, laser lithotripsy, stone extraction, stent placement Surgeon Shaheen Herzog MD Anesthesia General Indications for 8-year-old male status post ESWL yesterday with Steinstrasse in the mid ureter Findings mid ureteral area of significant inflammation with upstream gravel that was all flushed out with the basket and small amount of lithotripsy Description of Procedure patient is brought back to the operating room. He was prepped, draped, padded per protocol. He was therapeutic on antibiotics. Time-out performed. Bladder was entered with the rigid cystoscope. Anterior urethra was unremarkable. The prostate was minimally obstructive. Bladder has dust but was otherwise unremarkable. Fluoroscopy showed that the upper tract was still full of contrast from his CT yesterday. Sensor wire was advanced up into the upper tract. The distal ureter was dilated with an 8/10 coaxial dilator. Semi-rigid ureteral scope was used to perform ureteroscopy. The distal ureter was fine, in the mid ureter there was an area of narrowing and red erythema. Just upstream from this was an index stone fragment that was only probably 4 mm or so but a lot of gravel beyond the impacted stone. The largest stone was lasered and then with the basket all of the remaining stone fragments were flushed out. There did not appear to be any significant residual stone. The ureter was a little bit up. Cystoscope was replaced over the wire and a 6 Micron[place] variable length stent was advanced into good position. The bladder was drained, stone fragments were sent for analysis, and he was sent to recovery.
--- NOTE | 2024-05-22 11:05 | SUR.PHASEI ---
Simple mask removed 1105.
[2024-05-23 00:30] VITALS: BP 132/72; PULSE 62; RESP 20; TEMP 36.2; O2SAT 98
[2024-05-23 05:24] LABS: Basophils Percent Auto 0.3 % (0.2-1.2); Eosinophils Absolute Auto 0.1 K/mm3 (0-0.3); Eosinophils Percent Auto 0.6 % (0-4.4); Hematocrit 35.8 % (42.0-52.0); Hemoglobin 12.3 g/dL (14.0-18.0); Immature Granulocyte Absolute 0.07 K/mm3 (0.00-0.031); Immature Granulocyte Percent A 0.6 % (0-0.5); Lymphocytes Absolute Auto 1.84 K/mm3 (0.9-3.2); Mean Corpuscular HGB Conc 34.4 g/dl (32-36); Mean Corpuscular Hemoglobin 31.5 pg (26-34); Mean Corpuscular Volume 91.8 fl (80-100); Mean Platelet Volume 9.5 fl (7.4-10.4); Monocytes Percent Auto 9.2 % (2.6-8.5); Neutrophils Absolute Auto 7.8 K/mm3 (1.3-6.7); Neutrophils Percent Auto 72.3 % (45.5-73.1); Platelet Count Result 179 k/mm3 (150-375); Red Cell Distribution Width 12.2 % (11.5-14.5); White Blood Count 10.8 K/mm3 (4.5-10.0)
[2024-05-23 05:37] LABS: Alanine Aminotransferase 21 U/L (6-50); Albumin Level 3.2 g/dL (3.5-5.1); Alkaline Phosphatase 67 U/L (38-126); Anion Gap 5 mmol/L (4-12); Aspartate Amino Transferase 22 U/L (17-59); Bilirubin,Total 1.6 mg/dL (0.2-1.3); Blood Urea Nitrogen 16 mg/dL (9-20); Calcium 8.6 mg/dL (8.4-10.2); Carbon Dioxide 27 mmol/L (22-30); Chloride 102 mmol/L (98-107); Estimated CRCL calculation 62 ml/min; Estimated Glomerular Filt Rate 50; Glucose 111 mg/dL (65-110); Potassium 3.5 mmol/L (3.4-5.0); Sodium 134 mmol/L (137-145)
[2024-05-23 06:00] VITALS: BP 122/65; PULSE 63; RESP 18; TEMP 36.2; O2SAT 97
[2024-05-23] MEDS: TAMSULOSIN HCL 0.4 MG CAPSULE PO (08:57)
--- NOTE | 2024-05-23 10:16 | PM.DS ---
DS: Admitting Diagnosis Discharge Date 05/23/24 Admitting Diagnosis abdominal pain DS: Discharge Diagnosis Discharge Diagnosis (1) Urolithiasis: Code(s): N20.9 - Urinary calculus, unspecified Status: Acute Assessment and Plan: 8 mm left ureter stone obstructing with hydronephrosis. Patient is status post ESWL from 05/21. UA shows turbid colored urine with specific gravity greater than 1.045, 2+ protein, 3+ blood, 1+ leuks, and pyuria. Leukocytosis 14.5 today Urology consulted and is taking patient for cystoscopy today Normal saline 125 mL an hour--now on a diet. Stop IV fluids. Patient was started on Zosyn and vancomycin. Low risk for MRSA, stopping vancomycin. Stopping Zosyn and putting on Rocephin. Urine and blood cultures are pending PRN pain medications with Toradol and Dilaudid. Flomax and strain all urine (2) Obstructive sleep apnea: Code(s): G47.33 - Obstructive sleep apnea (adult) (pediatric) Status: Acute Assessment and Plan: KRISTEN and compliant with CPAP Plan DVT prophylaxis: SCD Glycemic control: na Code Status: FULL Disposition: 48-year-old male who presents status post as well with complaints of abdominal pain found to have 8 mm left obstructing stone. Urology has been consulted and he is going for a cystoscopy with stent placement. He was started on IV antibiotics. Urine and blood cultures pending. Medication reconciliation obtained via the following: Nurse completed on admission The file time of this note does not necessarily represent the time the patient was seen. DS: Summary Hospital Course Reason for hospitalization: obstructive kidney stone with hydronephrosis Hospital Course: This is a 48-year-old male with past medical history significant for urolithiasis, obstructive sleep apnea who is status post lithotripsy from 05/21 comes emergency room with left flank pain, nausea, vomiting, and chills. CT of the abdomen pelvis showed a 8 mm stone in the left lower ureter with left hydronephrotic changes concerning for obstruction. The patient was admitting with urology consult. He was started on IV antibiotics and IV fluids. He underwent a cystoscopy with laser of kidney stone and ureteral stent placement. His labs showed an GAIL on the morning after his procedure. I discussed these findings with Dr Walton who explained that during the procedure the kidney was full of contrast from the imaging the day before. The creatinine bump was likely lagging. Since the stent was in good position it was decided the patient would be able to discharge home. I encouraged him to drink lots of fluids to help flush his kidney. I wrote for him to have repeat labs in 1 week prior to his follow up with Urology for stent removal. He did not receive antibiotics as his urine culture was negative and ua did not appear infected. The patient overall did was and was discharged in stable condition. Time Spent with Patient Time attestation: Total time spent providing and/or coordinating discharge services: 73 Exam Narrative: General: well appearing, appears stated age. HEENT: normocephalic, atraumatic. Mucous membranes moist. EOMI, PERRLA, bilateral sclera anicteric, no conjunctival injection. Neck supple without JVD, lymphadenopathy, or bruit. Respiratory: clear to auscultation bilaterally. No rales/rhonic/wheezes. Cardiovascular: Regular rate and rhythm, normal S1-S2 upon auscultation. No murmurs, rubs, or clicks. PMI is nondisplaced, capillary refill less than 3 second. Abdomen: Soft, round, no pulsatile masses, nondistended mildly tender to deep palpation of right upper quad. No rebound, no guarding. No CVA tenderness, no hepatosplenomegaly. Bowel sounds present to all four quadrants. No high pitch or tinkling sounds, resonant to percussion. Tenderness to left lower quadrant. E
== END 2024-05-23 11:48 | disposition home or self-care (01) ==
LOC: ANHED 17:39 → ANH2MED 05-22 07:55
PROVIDERS: Urology; Admitting Provider Internal Medicine; Emergency Provider Physician Assistant; PCP Emergency Medicine; Visit Provider Nurse Practitioner Acute Care
PROC: (CPT 52352; principal; 2024-05-22 10:00)
DX: N20.2 Calculus of kidney with calculus of ureter (principal); G89.18 Other acute postprocedural pain; S37.012A Minor contusion of left kidney, initial encounter; G47.33 Obstructive sleep apnea (adult) (pediatric)
CPT/HCPCS: 52356; 36415; 74018; 74177; 80053; 81001; 82365; 83605; 83690; 85025; 85610; 85730; 87040; 87086; 88300; 96361; 96365; 96374; 96375; 96376; 99285; A9270; C2617; G0378; J0690; J0696; J1100; J1170; J1885; J2250; J2270; J2405; J2543; J2704; J3010; J3370; J7030; J7120; Q9967

== ENCOUNTER 2024-06-02 08:23 | Outpatient (CLI) | payer OTHER, SELFPAY ==
--- NOTE | ~2024-06-02 | XR_ITS ---
Supine and upright views of the abdomen Clinical history: Renal stone COMPARISON: February 19, 2024 Findings: Bowel gas pattern is nonspecific. No evidence for obstruction or free air. Left ureteral st ent now in place. No abnormal mass lesion or calcification is seen. Osseous structures are intact. Impression: Left ureteral stent. No stones identified. Reviewed, dictated and finalized at [facility]. Impression: Left ureteral stent. No stones identified.
== END 2024-06-02 08:24 | disposition home or self-care (01) ==
PROVIDERS: PCP Emergency Medicine; Visit Provider Urology
DX: N20.0 Calculus of kidney (principal); Z96.0 Presence of urogenital implants
CPT/HCPCS: 74018

== ENCOUNTER 2024-10-01 11:25 | Outpatient (CLI) | payer OTHER, SELFPAY ==
--- NOTE | ~2024-10-01 | MR_ITS ---
EXAMINATION: MR lumbar spine wo/w con DATE: 10/01/2024 12:39 INDICATION: Lumbar radiculopathy. TECHNIQUE: Magnetic resonance imaging (MRI) of the lumbar spine was performed without and with 19 mL MultiHance intravenous contrast. COMPARISON: Lumbar spine MRI 01/11/2020 FINDINGS: There is 7 degrees levocurvature of thoracolumbar spine. Vertebral body heights are normal. There is mildly decreased disc height at L4-L5 and severely decreased disc height at L5-S1. The dist al spinal cord signal intensity is normal. The conus medullaris is at T12-L1. The following disc leve ls are specifically discussed: L1-L2: The disc does not extend beyond the endplate margin. There is mild bilateral facet joint osteo arthritis. There is no neural foraminal stenosis. There is no central canal stenosis. L2-L3: The disc does not extend beyond the endplate margin. There is no facet joint osteoarthritis. T here is no neural foraminal stenosis. There is no central canal stenosis. L3-L4: The disc does not extend beyond the endplate margin. There is mild bilateral facet joint osteo arthritis. There is no neural foraminal stenosis. There is no central canal stenosis. L4-L5: The disc is bulging and has an annular fissure. There is mild bilateral facet joint osteoarthr itis. There is mild bilateral neural foraminal stenosis. There is mild central canal stenosis. L5-S1: The disc is bulging and has an annular fissure. There is severe right facet joint osteoarthrit is. There are changes of left facet joint resection. There is moderate bilateral neural foraminal gely nosis. There is mild central canal stenosis. IMPRESSION: 1. Severe lower lumbar spondylosis, worsened from 01/11/2020. Reviewed, dictated and finalized at location [facility] [employer]PER[facility]
== END 2024-10-01 11:26 | disposition home or self-care (01) ==
LOC: MICIMG 11:26
PROVIDERS: PCP Emergency Medicine
DX: M54.16 Radiculopathy, lumbar region (principal); M43.06 Spondylolysis, lumbar region
CPT/HCPCS: 72158; A9577

== ENCOUNTER 2024-11-22 09:24 | Emergency (ER) | payer OTHER, SELFPAY ==
--- NOTE | 2024-11-22 09:48 | ED.URI ---
HPI - URI/Sore Throat General Chief Complaint: Upper Respiratory Infection Stated Complaint: Cough/Fever Time Seen by Provider: 11/22/24 09:48 Source: patient, RN notes reviewed and old records reviewed Mode of arrival: ambulatory Limitations: no limitations History of Present Illness HPI Narrative: Patient presents with complaints of 2 days of flu-like symptoms. He has been taking [id number] medications with moderate relief. Says this cough feels unlike any cough he has ever had before. He is not in any distress. Related Data Home Medications ?Medication ?Instructions ?Recorded ?Confirmed ?Last Taken ?Type hydrochlorothiazide 25 mg tablet 25 mg PO DAILY 11/15/24 11/15/24 Unknown History Allergies Allergy/AdvReac Type Severity Reaction Status Date / Time No Known Allergies Allergy Verified 11/22/24 10:12 Review of Systems Review of Systems: All systems reviewed & are unremarkable except as noted in HPI and below Constitutional: Constitutional: Reports no additional constitutional complaints, Reports body ache(s), Reports fever(s) and Reports lethargy ENT: Reports system reviewed and no additional complaints, except as documented and Reports nasal discharge Cardiovascular: Cardiovascular: Reports no additional cardiovascular complaints Respiratory: Respiratory: Reports no additional respiratory complaints and Reports cough Gastrointestinal: Gastrointestinal: Reports no additional gastrointestinal complaints [facility] Past Medical History Medical History Hyperglycemia Sinusitis Obstructive sleep apnea Kidney stones 1998 Urolithiasis Surgical History Surgical History Previous back surgery 05/18 micro-discectomy S/P ureteral stent placement Family History Family History Father Cerebrovascular accident Legally blind Other Kidney stones Previous back surgery Social History Social History Smoking status: Never smoker Tobacco type: smokeless tobacco Alcohol intake: current Alcohol use details: Socially Substance use: never Substance use type: does not use Current Housing: Decline to Answer Concerned About Future Housing: Decline to Answer Difficulty Paying Gas/Electric Bills: Decline to Answer Difficulty Paying for Meds: Decline to Answer Currently Unemployed: Decline to Answer Education: Decline to Answer Difficulty w/ Childcare or Family Care: Decline to Answer Living arrangements: with family Occupation/Education: occupation Gender identity (if verbalized by the patient): Male Spiritual care concerns: No Comments At the time of my signature, I reviewed and agree with the nursing past medical, surgical, social, and family history. There is no relevant family history pertinent to the patient complaint. Exam Const: General: cooperative, no acute distress, alert and awake Orientation/consciousness: oriented to person, oriented to place and oriented to time HENMT: Head: normal to inspection Resp: Effort & Inspection: normal respiratory effort and able to speak in complete sentences Auscultation: clear to auscultation bilaterally, no crackles, no rales, no rhonchi and no wheezes Cardio: Palpation: normal PMI Rate: regular rate Rhythm: regular rhythm Heart sounds: S1 normal heart sound present and S2 normal heart sound present Neuro: General: oriented to person, oriented to place and oriented to time Cranial nerves: Yes CN's II-XII intact bilaterally Psych: Appearance: grossly normal Thought process: Normal thought process present Insight: Good insight present (Psych) Judgement: Good judgement present (Psych) Course Course Level of Care: Express Care Visit Vital Signs Vital signs: Reviewed MDM - URI/Sore Throat MDM Narrative Medical decision making narrative: Reassuring physical exam. Unable to shoot chest x-ray today, will treat his bronchitis with prednisone burst, albuterol, Z-Andrew for added anti-inflammatory properties. Some parts of this dictation were generated by voice recognition software and may contain typographical and/or grammatical inaccuracies. Discharge instructions reviewed with patient, as well as provided in writing per nursing staff. The instructions also include specific and strict return/GO TO THE ER as well as f/u information. All questions have been answered, and the patient deny any further questions with discharge and discharge plan. Differential Diagnosis Differential diagnosis: Likely upper respiratory infection, viral infection, bronchitis, influenza and pharyngitis Medical Records Attestation: I reviewed the patient's medical records. Lab Data Attestation: I reviewed the patient's lab results. Discharge Plan Discharge Clinical Impression: Bronchitis Patient Disposition: Home, Self-Care Condition: Stable Instructions: Antibiotic Form Patient Language: Macedonian Prescriptions: New azithromycin 250 mg tablet See Rx Instructions .ROUTE .COMPLEX Qty: 6 0RF Rx Instructions: For 250 mg dose pack: take 500 mg today (day 1), then 250 mg for 4 days (days 2-5) prednisone 50 mg tablet 50 mg PO DAILY Qty: 5 0RF albuterol sulfate [Ventolin HFA] 90 mcg/actuation HFA aerosol inhaler 2 puff inhalation QID PRN (Reason: shortness of breath or wheezing) Qty: 8.5 0RF No Action hydrochlorothiazide 25 mg tablet 25 mg PO DAILY sildenafil [Viagra] 50 mg tablet 50 mg PO DAILY PRN (Reason: sexual activity) Qty: 10 2RF Rx Instructions: administer 30 minutes to 4 hours before activity Follow-up/Referrals: Pal Ramos MD [Primary Care Provider] - 2 Weeks Time of Disposition: 10:32
[2024-11-22 10:00] VITALS: BP 126/82; PULSE 81; RESP 16; TEMP 37.6; O2SAT 100
[2024-11-22 10:27] LABS: EDCOVIDSCREEN Negative (Negative); EDINFLUASCREEN Negative (Negative); EDINFLUBSCREEN Negative (Negative)
== END 2024-11-22 10:40 | disposition home or self-care (01) ==
PROVIDERS: Emergency Provider Nurse Practitioner Family; PCP Emergency Medicine
DX: J40 Bronchitis, not specified as acute or chronic (principal); Z20.822 Contact with and (suspected) exposure to COVID-19
CPT/HCPCS: 87426; 87804; 99213; G0463

== ENCOUNTER 2024-12-22 08:15 | Outpatient (RCR) | payer OTHER, SELFPAY ==
[2024-12-22 10:48] VITALS: BMI 30.7
== END 2025-03-07 10:48 | disposition home or self-care (01) ==
LOC: ANHDMC 08:15
PROVIDERS: PCP Emergency Medicine; Visit Provider Emergency Medicine
DX: E78.1 Pure hyperglyceridemia (principal); E88.819 Insulin resistance, unspecified; E78.5 Hyperlipidemia, unspecified; Z71.9 Counseling, unspecified; Z71.3 Dietary counseling and surveillance
CPT/HCPCS: 97802

== ENCOUNTER 2025-01-20 08:17 | Outpatient (CLI) | payer OTHER, SELFPAY ==
--- NOTE | ~2025-01-20 | XR_ITS ---
XR abdomen/kub 1V Ordering provider: Rajan Smith MD History: . kIDNEY STONES . Comparison: None. FINDINGS: BOWEL: Nonobstructive bowel gas pattern. ORGANOMEGALY: None. SIGNIFICANT PATHOLOGIC CALCIFICATIONS: None. OTHER: No free air is seen under the diaphragm. IMPRESSION: NO ACUTE ABDOMINAL FINDINGS. Reviewed, dictated and finalized at location A.
--- OUTSIDE RECORDS SUMMARY | 2025-01-20 08:29 | XMS_ITS | Clinical Summary ---
Author Organization [facility] Address [address] [place] [address] Phone Care Team Providers Care Bobbin Trucker Name Role Phone Pal Ramos MD Primary Care Provider [phone] Allergies No known active allergies Medications hydroCHLOROthia zide 25 mg tablet Take 1 Tablet by mouth daily. 4 Active sildenafiL (VIAGRA) 50 mg tablet Active naproxen sodium (ALEVE) 220 mg Tablet Take 220 mg by mouth. Active multivitamin (DAILY-CAM) tablet Take 1 Tablet by mouth daily. Active methylPREDNISol one (MEDROL DOSPACK) 4 mg Tablets, Dose Pack Take as directed 21 Tablet 4 Active Additional Information Patient not taking.Reported on 12/30/2024 Active Problems No known active problems Encounters Date Type Department Care Team Description 01/11/2025 External Device Data [facility] ABSTRACTION Provider, Abstract 01/03/[address] [place] [address] [id number] MD ASC - 02/18/25 - L L5-S1 Rev MID 12/30/2024 9:15 AM CDT Office Visit [facility] [address] [place] [address] [place] [address] [phone] MD Pre-operative examination (Primary Dx); Lumbosacral disc herniation 12/06/2024 Abstract [facility] [address] [place] [address] Provider, Abstract 12/04/2024 External Device Data [facility] ABSTRACTION Provider, Abstract 12/04/2024 External Device Data [facility]STRACTION Provider, Abstract 11/23/2024 External Device Data [facility]STRACTION Provider, Abstract 11/11/2024 Abstract [facility] Neuro[facility] [address] [place] [address] Provider, Abstract from Last 3 Months Family History Relation Name Status Comments Father Alive Mother Alive Social History Tobacco Use Types Packs/Day Years Used Date Smoking Tobacco: Never Smokeless Tobacco: Never Tobacco Cessation:Counseling Given: Not Answered Alcohol Use Standard Drinks/Week Comments Not Currently 0 (1 standard drink = 0.6 oz pur e alcohol) Sex and Gender Information Value Date Recorded Sex Assigned at Not on file Legal Sex Male 9:58 AM CDT Gender Identity Not on file Sexual Orientation Not on file Last Filed Vital Signs Vital Sign Reading Time Taken Comments Blood Pressure 112/78 12/30/2024 9:09 AM CDT Pulse 89 12/30/2024 9:09 AM CDT Temperature 36.6 C (97.8 F) 12/30/2024 9:09 AM CDT Respiratory Rate 16 12/30/2024 9:09 AM CDT Oxygen Saturation 97% 12/30/2024 9:09 AM CDT Inhaled Oxygen Concentration - - Weight 97.3 kg (214 lb 8 oz) 12/30/2024 9:09 AM CDT Height 177.8 cm (5' 10 ) 12/30/2024 9:09 AM CDT Body Mass Index 30.78 12/30/2024 9:09 AM CDT Plan of Treatment Health Maintenance Due Date Last Done Comments Pre-Diabetes and Diabetes Screening 1974 DTAP/TDAP/TD VACCINES (1 - Tdap) 1993 HEPATITIS B VACCINES (1 of 3 - + 3-dose series) 10/30 COLORECTAL SCREENING 2019 Colorectal Cancer Screening 2019 FIT-DNA Q 3 years 2019 FIT/FOBT Q 1 year 2019 Flex Sig/CT Colonography Q 5 years 2019 INFLUENZA VACCINE (#1) 2024 ZOSTER VACCINE (1 of 2) 2024 Procedures Procedure Name Priority Date/Time Associated Diagnosis Comments EKG 12-LEAD Routine 12/30/2024 Pre-operative examination from Last 3 Months Results * EKG 12-LEAD (12/30/2024) us Romain Lane MD ECG ORDERABLES Final Result from Last 3 Months Insurance [facility] [id number] Care Teams Bobbin Trucker Relationship Specialty Start Date End Date Pal Ramos MD [address] [place] [address] PCP - General Internal Medicine 08/17/24
--- OUTSIDE RECORDS SUMMARY | 2025-01-20 08:29 | XMS_ITS | Clinical Summary ---
Author Organization [facility] Address [address] [place] [address] Care Team Providers Care Car Dryer Name Role Phone Pal Ramos MD Primary Care Provide r Allergies No known active allergies Medications mv,iron,min-fol ic acid-biotin 66.7-1,666.7 mcg capsule Take 1 tablet/chew tab by mouth daily Active cholecalciferol (VITAMIN D-3) 25 mcg (1,000 unit) tablet Take 1,000 Units by mouth daily Active gabapentin (NEURONTIN) 300 mg capsule Take 300 mg by mouth 3 (three) times a day 0 Active dexAMETHasone (DECADRON) 4 mg tablet Take 1 tablet (4 mg total) by mouth 3 (three) times a day Take with food. 15 tablet 0 Active Additional Information Patient not taking.Reported on 01/22/2023 oxyCODONE-aceta minophen (PERCOCET) 5-325 mg per tabletIndicatio ns:Pain Take 1-2 tablets by mouth every 6 (six) hours as needed for pain (1 tablet for mild to moderate pain or 2 tablets for severe pain) 30 tablet 0 Active Additional Information Patient not taking.Reported on 01/22/2023 acetaminophen ER (TYLENOL) 650 mg 8 hr tablet Take 1 tablet (650 mg total) by mouth every 8 (eight) hours as needed for pain Active glucosamine-cho ndroit-vit C-Mn capsule Take by mouth Active Active Problems Problem Noted Date Diagnosed Date Low back pain at multiple sites 01/22/2023 01/22/2023 Pain in joint involving pelvic region and thigh 01/22/2023 01/22/2023 Right hip pain 01/22/2023 01/22/2023 Intervertebral disc disorder with radiculopathy of lumbar region 05/16/2020 Assessment & Plan (05/16/2020 1:03 PM CDT): Mr. Addison has a left L5 radiculopathy with severe foraminal stenosis period the anatomy of the L5-S1 level shows that the transverse process on both sides are very near the sacral ala with very limited exposure for a paracentral approach. This would also be difficult to even throughout a wire such as the IO flex device. Ideally he would undergo a minimally invasive decompression of the L5-S1 level in the foramen. I cannot think of a good weight to do this. I have offered him surgery in the form of anterior lumbar interbody fusion followed by percutaneous verses open fusion in the back. This would depend on his radicular symptoms after the anterior procedure. As an alternative I have offered him posterior lumbar decompression and fusion with bilateral Gonzáles procedures to widely decompress the L5 nerve roots. We will refer him to Dr. Romain Neri who specializes in minimally invasive surgery and may have a less invasive option to treat this. If he wishes to proceed with either the surgeries that I have offered him, he can call the office and we would be happy to arrange this by phone. Sacroiliitis 05/03/2020 01/22/2023 Overview (01/22/2023): Added automatically from request for surgery [id number] Surgical History Surgery Date Site/Laterality Comments EPIDURAL STEROID INJECTION KIDNEY STONE SURGERY 09/29/1998 - 09/28/1999 BACK SURGERY Medical History Medical History Date Comments Nephrolithiasis Sciatica Lumbar disc disease Kidney stones 1998 Obesity Sleep apnea Sleep apnea, obstructive Family History Medical History Relation Name Comments Stroke Father Cancer Mother Relation Name Status Comments Father Alive Mother Alive Social History Tobacco Use Types Packs/Day Years Used Date Smoking Tobacco: Never Smokeless Tobacco: Never Alcohol Use Standard Drinks/Week Comments Yes 0 (1 standard drink = 0.6 oz pur e alcohol) Social PHQ-2 Answer Date Recorded PHQ-2 Total Score (If total score is 3 or more points, staff should administer the PHQ-9) 6 05/16/2020 Personal Safety Answer Date Recorded Getting School Help Needed Not on file 12/13 Sex and Gender Information Value Date Recorded Sex Assigned at Not on file 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 Gender Identity Not on file Sexual Orientation Not on file 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 Not on file Not on file Not on file Obstetrics History Last Filed Vital Signs Vital Sign Reading Time Taken Comments Blood Pressure 115/84 05/07/2020 12:00 PM CDT Pulse 86 05/07/2020 12:00 PM CDT Temperature 37 C (98.6 F) 05/07/2020 9:11 AM CDT Respiratory Rate 12 05/16/2020 11:55 AM CDT Oxygen Saturation 95% 05/07/2020 12:00 PM CDT Inhaled Oxygen Concentration - - Weight 95.5 kg (210 lb 9.6 oz) 01/22/2023 8:55 A M CDT Height 179.1 cm (5' 10.5 ) 01/22/2023 8:55 AM CD T Body Mass Index 29.79 01/22/2023 8:55 AM CDT Plan of Treatment Health Maintenance Due Date Last Done Comments Colon Cancer Screening-Colonoscopy 1974 Hepatitis C Screening 1974 Prostate Cancer Screening-PSA 1974 DTaP/Tdap/Td Vaccine (1 - Tdap) 1985 Hepatitis B Screening 1992 Regular Well Visit/Exam 18-64 1992 Depression Screening 05/16/2021 05/16/2020, 05/16/2020 Zoster Vaccine (1 of 2) 2024 Influenza Vaccine (Season Ended) 2025 Pneumococcal vaccine <65 Aged Out No longer eligible based on patient's age to complete this topic Insurance [facility]PPO Address: [place] [address] [facility]/PPO Address: [address] [place] [address] [facility]/PPO Address: [address] [place] [address] Care Teams Car Dryer Relationship Specialty Start Date End Date Pal Ramos MD [address] [place] [address] PCP - General Emergency Medicine 01/22/23
--- OUTSIDE RECORDS SUMMARY | 2025-01-20 08:29 | XMS_ITS | Patient Health Record ---
Author Organization [facility] Address [address] [facility] [address] [address] [place], [place] [id number] Care Team Providers Care Precinct Police Captain Name Role Phone Pal Ramos Primary Care Provider Keyshawn Holm Unavailable [phone] Unavailable Unavailable REASON FOR REFERRAL No Information SOCIAL HISTORY Sex Assigned At : Social History Observation Description Sex Assigned At Unknown PROBLEMS Problem Type ICD Code Onset Dates Problem Status W/U Status Risk SNOMED Code Notes Problem Pain in right hip (M25.551) Active confirmed 39989281 Problem Pain in left hip (M25.552) Active confirmed 68980907 Problem Low back pain at multiple sites (M54.50) Active confirmed [id number] PLAN OF TREATMENT No Information Insurance Providers Payer Name Payer Address Payer Phone Subscriber Number Group Number Insured Name Patient Relationship to Insured Coverage Start Date Coverage End Date [facility] - CHOICE PLUS [address] [address] [place] [address] [phone] [id number] Phillip Addison Self - patient is the insured 3 MEDICAL (GENERAL) HISTORY Medical History History ICD Code indigestion Kidney stones erection difficulties rectal bleeding Surgical History Surgery Date(Month/Year) microdisectomy 2020
--- OUTSIDE RECORDS SUMMARY | 2025-01-20 08:29 | XMS_ITS | Clinical Summary ---
Author Organization [facility] Address [address] [place] [address] Care Team Providers Care Kiln Mechanic Name Role Phone Jagdish Birch MD Primary Care Provider [phone] Allergies No known active allergies Medications methocarbamol 750 MG Tab TK 1 T PO BID PRF MUSCLE RELAXER 01/26/2020 Active gabapentin 300 MG capsule One tablet po qhs x 3 days then increase to bid for 3 days then increase to tid 90 capsule 3 03/22/2020 Active oxyCODONE-aceta minophen 5-325 MG tablet Take 1 tablet by mouth every 6 (six) hours as needed for Pain (take 1 to 2 tablets by mouth every 6 hours as needed for pain.). Active dexamethasone 1 MG tabletIndicatio ns:take with meals. Take 4 mg by mouth 3 (three) times a day. Indications: take with meals. Active oxyCODONE-aceta minophen 10-325 MG tabletIndicatio ns:Acute Pain < 7 Day Supply Take 1 tablet by mouth every 4 (four) hours as needed for Pain. Indications: Acute Pain < 7 Day Supply 20 tablet 05/08/2020 Active Active Problems Problem Noted Date Diagnosed Date Sacroiliitis 05/03/2020 Overview (05/05/2020): Added automatically from request for surgery [id number] Encounters Date Type Department Care Team Description 01/04/2025 9:56 AM CDT - 01/04/2025 11:59 PM CDT Hospital Encounter [facility] [address] [place] [address] Maddy Ferreira MD Discharge Disposition: Home or Self Care (Routine Discharge) 01/04/2025 Travel from Last 3 Months Family History Medical History Relation Comments Stroke Father Cancer Mother Relation Status Comments Father Mother Social History Tobacco Use Types Packs/Day Years Used Date Smoking Tobacco: Never Smokeless Tobacco: Never Alcohol Use Standard Drinks/Week Comments Yes 0 (1 standard drink = 0.6 oz pur e alcohol) SOCIAL Sex and Gender Information Value Date Recorded Sex Assigned at Male 12/29/2024 2:54 PM CDT Legal Sex Male 4:32 PM CDT Gender Identity Not on file Sexual Orientation Not on file Occupation Industry Job Start Date Job End Date [employer] Not on file Not on file Not on file Last Filed Vital Signs Vital Sign Reading Time Taken Comments Blood Pressure 132/86 05/08/2020 9:39 AM CDT Pulse 88 05/08/2020 9:44 AM CDT Temperature 37 C (98.6 F) 05/08/2020 8:39 AM CDT Respiratory Rate 20 05/08/2020 9:44 AM CDT Oxygen Saturation 98% 05/08/2020 9:44 AM CDT Inhaled Oxygen Concentration - - Weight 93 kg (205 lb) 05/08/2020 8:39 AM CDT Height 177.8 cm (5' 10 ) 05/08/2020 8:39 AM CDT Body Mass Index 29.41 05/08/2020 8:39 AM CDT Plan of Treatment Health Maintenance Due Date Last Done Comments Colorectal Cancer Screening Colonoscopy (10 Years) 1974 Annual Physical 1977 Hepatitis C 1992 DTaP, Tdap and Td Vaccines ( 1 - Tdap) 1993 Hepatitis B Vaccines (1 of 3 - 19+ 3-dose series) 1993 COVID-19 Vaccine ( - 2023-2 5 season) 2024 Pneumococcal Vaccine: 50+ Ye ars (1 of 1 - PCV) 2024 Zoster Vaccines (1 of 2) 2024 Meningococcal Vaccine Aged Out 05/22/2018 No michelle agnes eligible based on patient's age to complete this topic Meningococcal B Vaccine Aged Out No l onger eligible based on patient's age to complete this topic RSV Immunizations Under 20 Months Aged Out No longer eligible based on patient's age to complete this topic Procedures Procedure Name Priority Date/Time Associated Diagnosis Comments CT HEART SCREEN CALCIUM SCORE PROMO Routine 01/04/2025 10:13 AM CDT Screening for ischemic heart disease from Last 3 Months Results * CT HEART SCREEN CALCIUM SCORE PROMO (01/04/2025 10:13 AM CDT) Anatomical Region Laterality Modality Chest Computed Tomogra phy 01/04/2025 10:1 5 AM CDT Impressions 01/04/2025 10:16 AM CDT =====IMPRESSION:===== Total Score: 0 No plaque, very low risk, very unlikely for probability of significant CAD Ordered By: MADDY FERREIRA Interpreted By: Souleymane Singer MD, 01/04/2025 10:15 AM Narrative 01/04/2025 10:16 AM CDT [address] [address] EXAMINATION: Multislice Helical CT Coronary Calcium Scoring REASON FOR EXAM: Screening for heart disease COMPARISON: None TECHNIQUE: Multislice helical CT images of the proximal coronary arteries with a computer generated calcification score. A dose lowering technique was used for this procedure, which may include, but is not limited to, dose reduction technique, automated exposure control, iterative reconstruction, ALARA (As Low As Reasonably Achievable), or Image Gently techniques. Results: Left main: 0 LAD: 0 Circumflex: 0 Right coronary: 0 Total Score: 0 Comments: There is no mediastinal adenopathy, and there are no pulmonary nodules in the visualized portions of the chest. Calcium score guidelines: Total Score* Calcium Plaque Clinton *Risk *Probability of significant CAD 0 No Plaque Very Low Very unlikely 1-10 Minimal Plaque Low Unlikely 11-100 Mild Plaque Moderate Low likelihood of significant stenosis <50% 101-400 Moderate Plaque Moderately High Moderate likelihood of significant stenosis (>50%) Over 400 Extensive Plaque High High likelihood of significant stenosis (>50%) The amount of coronary artery calcification correlates with the severity of coronary atherosclerosis and the probability of future significant event. Calcification is not site specific for stenosis and does not identify non-calcified atherosclerotic plaque, but rather indicates the extent of atherosclerosis in the coronary arteries overall. The score may be used as an indicator for risk factor modification or additional cardiac testing. Significant change in calcium score over time may be indicative of subsequent disease development or useful as a benchmark to assess preventative programs. Procedure Note Souleymane Singer MD - 01/04/[address] [address] EXAMINATION: Multislice Helical CT Coronary Calcium Scoring REASON FOR EXAM: Screening for heart disease COMPARISON: None TECHNIQUE: Multislice helical CT images of the proximal coronary arterieswith a computer generated calcification score. A dose lowering techniquewas used for this procedure, which may include, but is not limited to,dose reduction technique, automated exposure control, iterativereconstruction, ALARA (As Low As Reasonably Achievable), or Image Gentlytechniques. Results: Left main: 0 LAD: 0 Circumflex: 0 Right coronary: 0 Total Score: 0 Comments: There is no mediastinal adenopathy, and there are no pulmonarynodules in the visualized portions of the chest. Calcium score guidelines: Total Score* Calcium Plaque Clinton *Risk *Probability ofsignificant CAD 0 No Plaque Very LowVery unlikely 1-10 Minimal Plaque LowUnlikely 11-100 Mild Plaque ModerateLow likelihood of significant stenosis <50% 101-400 Moderate Plaque Moderately HighModerate likelihood of significant stenosis (>50%) Over 400 Extensive Plaque HighHigh likelihood of significant stenosis (>50%) The amount of coronary artery calcification correlates with the severityof coronary atherosclerosis and the probability of future significantevent. Calcification is not site specific for stenosis and does notidentify non-calcified atherosclerotic plaque, but rather indicates theextent of atherosclerosis in the coronary arteries overall. The score may be used as an indicator for risk factor modification oradditional cardiac testing. Significant change in calcium score over timemay be indicative of subsequent disease development or useful as abenchmark to assess preventative programs. =====IMPRESSION:===== Total Score: 0 No plaque, very low risk, very unlikely for probability ofsignificant CAD Ordered By: MADDY FERREIRA Interpreted By: Souleyamne Singer MD, 01/04/2025 10:15 AM us Maddy Ferreira MD CT Final Res ult from Last 3 Months Insurance [facility] Care Teams Kiln Mechanic Relationship Specialty Start Date End Date Jagdish Birch MD [address] [place] [id number] PCP - General FAMILY PRACTICE 01/18/20
--- OUTSIDE RECORDS SUMMARY | 2025-01-20 08:29 | XMS_ITS | Clinical Summary ---
Author Organization 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 Gender Identity Not on file Sexual Orientation Not on file Plan of Treatment Health Maintenance Due Date Last Done Comments Hepatitis C Virus (HCV) Screening 1974 TdaP Immunization 1974 Hepatitis B Immunization (2 of 3 - 19+ 3-dose series) 06/16/2018 05/19/2018 Colonoscopy 2019 Colorectal Cancer Screening 2019 Influenza Immunization (#1) 2024 SARS-COV-2 Immunization ( season) 2024 Cologuard 2024 Immunochemical Fecal Occult Blood 2024 Respiratory Syncytial Virus (RSV) Immunization (Adult) (1 - 1-dose 75+ series) 2049 Meningococcal Immunization (ACWY) Aged Out 018 No longer eligible based on patient's age to complete this topic Pneumococcal Immunization Combined Aged Out No longer eligible based on patient's age to complete this topic Rotavirus Immunization Aged Out No lo nger eligible based on patient's age to complete this topic
--- OUTSIDE RECORDS SUMMARY | 2025-01-20 08:30 | XMS_ITS | Data Portability ---
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 We talked about treatment options today in detail he wanted proceed with cortisone and oral prednisone he declined formal therapy we talked about proper exercises for this and what to avoid. At his request under sterile conditions I injected the patient's left shoulder into the subacromial space through the AC joint with for cc 0.5% Marcaine and 20 mg of Kenalog. Patient tolerated the procedure well. We will start a course of oral prednisone I will see him back in 6 weeks to see what impact treatment has had if his symptoms continue MRI scan may be indicated he voiced understanding agrees above plan call for any further problems difficulties or questions. Not available 03/08/2024 10:19:56 04/19/2024 04/19/2024 The patient has resolved rotator cuff tendinitis of his left shoulder. He has changing up his work out routine. Overall with treatment he is feeling much better after the cortisone injection and oral prednisone as well. We talked about what to avoid and what to do if his pain starts to return he has a refill on his prednisone pills or he could take ibuprofen [id number] 6-800 mg t.i.d. with food if necessary. We talked about this today he voiced understanding and agrees with the above plan. I will see him back as needed he will try conservative measures 1st before he comes back if necessary. He will call for any further problems difficulties or questions. Not available 04/19/2024 09:57:18 Plan of Treatment Reminders Order Date Submit Date Provider Last Modified By Organization Details Last Modified Time Details Appointments None recorded. Lab None recorded. Referral None recorded. Procedures injection/a spiration joint/bursa (PROC) 2023 024 [email or web address] In-Office Order, Internal Use Only DO Not Attach Compendium DO Not Attach Compendium, Do Not Delete/merge, [id number] 10:17:44 Surgeries None recorded. Imaging XR, shoulder 2023 024 [email or web address] [facility], [address], [place], [address], 4 11:42:29 Medication Orders Marcaine 0.5 % (5 mg/mL) injection solution 2023 024 [email or web address] Not available 12:40:09 Kenalog 10 mg/mL suspension for injection 2023 024 [email or web address] Not available 12:40:10 prednisone 10 mg tablets in a dose pack 2023 024 [email or web address] [id number], [address], [id number], 11:42:29 Patient TargetsNo targets recorded. Patient InstructionsNo instructions recorded. Reason for Referral None Reported. Results Created Date Observation Date Name Description Value Unit Range Abnormal Flag Note LastModifiedBy Organization Detail LastModifiedTime 03/08/20 24 XR, shoul [place] No observ ation record ed. [email or web address] [facility] [address] [facility] [address], [place], [address], 03/08/2024 10:21:46 Result Notes None recorded. Problems Name Problem SNOMED Code Status Onset Date Resolution Date Notes Provider Name and Address Organization Details Recorded Time Disorder of shoulder 546407649 Active Not Available [employer] 3 13:11:00 Pain of left shoulder joint 8522903824643 9109 [facility]23 [facility] [employer] [facility] 4 09:50:41 Osteoarthr itis of left acromiocla vicular joint 0051503419245 108 Active 2023 RICHA Meek [address] [employer], [place] [address], [place], [address] , [employer] [facility] [employer] [facility] 4 10:20:40 Tendinitis of left rotator cuff 9906670631212 9101 Active 2023 RICHA Meek [address] [facility], [place] [address], [place], [address] , [facility] [employer] [facility] [employer] [facility] 4 10:21:00 Impingemen t syndrome of left shoulder region 2053994319176 04 Active 2023 RICHA Meek [address] [facility], [place] [address], [place], [address] , [employer] [facility] [employer] [facility] 4 10:21:30 Problem Notes None recorded. Procedures Surgical History Date Name Laterality Status Provider Name and Address Organization Details Recorded Time Back Surgery completed Marisol Dumont [employer] 03/08/2024 09:50:18 Imaging Results Imaging Date Name Status LastModified by Organiz ation Details LastModified Time 03/08/2024 XR, shoulder completed [email or web address] [facility] [address], [place], [address], 03/08/2024 10:21:46 Procedure Notes None recorded. Medical Equipment None Reported. Allergies No known drug allergies Medications Name Sig Start Date Stop Date Status Note LastModified by Organization Details LastModified Time prednison e 10 mg tablet active Not Available Not Available Not Available sildenafi l 50 mg tablet active Not Available Not Available Not Available azithromy alicia 250 mg tablet active Not Available Not Available No t Available ibuprofen 800 mg tablet 07/19 completed Not Available Not Available Not Available penicilli n V potassium 500 mg tablet 07/19 completed Not Available Not Available Not Available prednison e 10 mg tablets in a dose pack Take 1 tab by mouth, 3 times a day for 3 daysTake 1 tab by mouth 2 times a day for 2 daysTake 1 tab by mouth once a day for 1 day 2023 active Not Available Not Available Not Avai lable Marcaine 0.5 % (5 mg/mL) injection solution Take 20 mg by injectio n route. 2023 active Not Available Not Available Not Avai lable tamsulosi n 0.4 mg capsule TAKE 1 CAPSULE BY MOUTH DAILY active Not Available Not Available No t Available Kenalog 10 mg/mL suspensio n for injection Take 20 mg by injectio n route. 2023 active [facility]: [id number] 01-16 LOT [id number] EXP 10/30/19 26 Not Available Not Available Not Available benzonata te 100 mg capsule TAKE 1 CAPSULE BY MOUTH THREE TIMES DAILY FOR COUGH 03/08 completed Not Available Not Available Not Available cephalexi n 500 mg capsule TAKE 1 CAPSULE BY MOUTH EVERY 6 HOURS FOR 7 DAYS active Not Available Not Available No t Available diclofena c sodium 75 mg tablet,de layed release Take 1 tablet(s ) 2 TIMES A DAY by oral route with food 03/08 completed Not Available Not Available Not Available ondansetr on 4 mg disintegr ating tablet DISSOLVE 1 TABLET ON THE TONGUE EVERY 8 HOURS NEEDED FOR NAUSEA OR VOMITING active Not Available Not Available No t Available oxycodone 5 mg tablet TAKE 1 TABLET BY MOUTH EVERY 6 HOURS NEEDED FOR PAIN active Not Available Not Available No t Available eszopiclo ne 1 mg tablet TAKE 1 TABLET BY MOUTH 30 TO 45 MINUTES BEFORE BEDTIME active Not Available Not Available No t Available lidocaine (PF) 10 mg/mL (1 %) injection solution In office injectio n administ ered by the provider 03/08 completed ND: [id number] 03-15 Not Available Not Available Not Available Engerix-B (PF) 20 mcg/mL intramusc ular syringe ADM 1ML IM UTD 07/19 completed Not Available Not Available Not Available Vitals Date Recorded Body height Body mass index (BMI) Body weight Provider Name and Address Organization Details Last Updated DateTime 03/08/2024 177.8 cm 30.1 kg/m2 33482.4 g Marisol Dumont [place] [facility] [employer] 03/08/2024 09:48:28 Date Recorded Body height Body mass index (BMI) Body weight Provider Name and Address Organization Details Last Updated DateTime 04/19/2024 177.8 cm 30.1 kg/m2 15254.4 g Sarah Nieto CNA [place] [facility] [employer] [facility] 04/19/2024 09:36:51 Social History None recorded. Functional Status None recorded. Mental Status None recorded. Family History Relationship Description Onset Age of this Age Resolved Age Notes LastModified by Organization Details LastModified Time Father [email or web address] Not available 2023 09:49:44 Mother Family history of malignant neoplasm [email or web address] Not available 2023 09:49:57 Medical History No medical history recorded. Past Encounters Encounter ID Performer Location Encounter Start Date Encounter Closed Date Diagnosis/Indication Diagnosis SNOMED-CT Code Diagnosis ICD10 Code Diagnosis Note [id number] RICHA Meek [facility] [address] [place] [address] 03/08/2024 09:24:46 03/08/2024 10:18:55 Pain of left shoulder joint 9265829271 7775949 M25.512 Osteoarthr itis of left acromioclavicular joint 4742960632 806493 M19.012 Tendinitis of left rotator cuff 7313497990 5904592 M67.814 Impingemen t syndrome of left shoulder region 1835742345 50558 M75.42 [id number] RICHA Meek [facility] [address] [place] [address] 04/19/2024 09:25:44 04/19/2024 10:08:10 Osteoarthritis of left acromioclavicular joint 4352395491 194519 M19.012 Pain of le ft shoulder joint 5077848800 7834803 M25.512 Tendinitis of left rotator cuff 9606874618 6155755 M67.814 Impingemen t syndrome of left shoulder region 5125277718 48612 M75.42 Health Concerns Section Related Observation LastModified by Organization Detai ls LastModified Time None Recorded Concern Status LastModified by Organization Details LastModified Time None Recorded Advance Directives Directive None Recorded Payers Encounter Date Sequence Insurance Name Policy Number Policy Peterson Covered Member ID Peterson Member ID Guarantor Name 03/08/2024 1 [facility] [id number] Phillip Manrique Boerm [id number] Phillip Addison 04/19/2024 1 [facility] [id number] Phillip Manrique Boerm [id number] Phillip Manrique Boerm Notes Date Note Type Note Provider Name and Address Organization Details Recorded Time 03/08/2024 text/html patient is a 48-year-old male who presents with left shoulder pain ongoing for about 3 weeks. Denies any specific trauma or injury he states he has pain mostly at the end of the collar bone and subacromial region. He works out likes to lift weights tried stays in shape but this is aggravating his shoulder recently. Despite modifying his activities his symptoms continue. He thinks he had a shot of cortisone in his shoulder many years ago for the same type of issue. He is pain and tenderness around the AC joint region anterior shoulder sometimes get some pain in the proximal biceps as well. States the pain is about a 5 on a scale 1-10 denies any weakness no loss of motion no radicular pain numbness or tingling. It does interfere with his daily activities somewhat. Particularly with working out with heavy weights. He comes in today for initial evaluation treatment. A new past medical history sheet was reviewed and signed on intake sheet of today's date drug allergies current medications family social history previous surgical history 10 point review of systems was reviewed and discussed in detail today with the patient. RICHA Meek [address] [place] [address], [facility] [address], [place], [address], [place] [facility] [employer] 03/08/2024 10:23:14 04/19/2024 text/html Patient returns for recheck of his left shoulder. He had rotator cuff tendinitis and impingement type symptoms. He had no specific trauma or injury he does workouts likes to lift weights and plays golf frequently. This was aggravating his shoulder. He has changed up some of his routine we also treated him with a shot of cortisone and oral prednisone. He comes in today stating that he really does not have any pain maybe insignificant twinges of pain that come and go but overall feeling much better. He comes in today for recheck and talk about further treatment options for the future. We reviewed his x-rays today from his previous visit he is a type 2 acromion and AC joint arthrosis which is moderate in nature. His subacromial space is well-maintained otherwise his shoulder looked good. RICHA Meek [address] [facility], [facility] [address], [place], [address], [place] [facility] [employer] [facility] 04/19/2024 09:57:34
--- OUTSIDE RECORDS SUMMARY | 2025-01-20 08:30 | XMS_ITS | Encounter Summary ---
Author Organization [facility] Address [address] [place] [address] Care Team Providers Care Dermatology Physician Name Role Phone Jagdish Birch MD Primary Care Provider [phone]- [phone] Reason for Referral * Surgical (Routine) - Closed Specialty Diagnoses / Procedures Referred By Jose prakash Referred To Contact Procedures Case request operating room: INJECTION SI JOINT Eryn Watt MD [address] [facility] [address] [place] [address] Phone: tel: fax: Referral ID Status Reason Start Date Expiration Date Visits Re quested Visits Authorized [id number] Closed 05/03/2020 06/03/2021 1 1 Encounter Details Date Type Department Care Team (Late st Contact Info) Description 04/18/2020 Prep for Procedure [facility] [place] [address] [id number] Eryn Watt MD [facility] [address] [place] [id number] Social History Tobacco Use Types Packs/Day Years [...] Industry 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 No / Unsure 03/22/2020 2:07 PM CDT documented as of this encounter Plan of Treatment Scheduled Orders Name Type Priority Associated Diagnoses Orde r Schedule Case request operating room: INJECTION SI JOINT Case Request Routine Once for 1 Oc currences starting 05/03/2020 until 05/03/2020 documented as of this encounter Visit Diagnoses Not on filedocumented in this encounter Care Teams Dermatology Physician Relationship Specialty Start Date End Date Jagdish Birch MD [address] [place] [id number] PCP - General FAMILY PRACTICE 01/18/20 documented as of this encounter
== END 2025-01-20 08:18 | disposition home or self-care (01) ==
PROVIDERS: PCP Emergency Medicine; Visit Provider Urology
DX: N20.0 Calculus of kidney (principal)
CPT/HCPCS: 74018

== ENCOUNTER 2025-07-27 08:49 | Outpatient (CLI) | payer OTHER, SELFPAY ==
--- NOTE | ~2025-07-27 | XR_ITS ---
EXAMINATION: XR abdomen/kub 1V, 07/27/2025 9:12 CDT HISTORY: History of kidney stones on lt side; CHECK UP COMPARISON: No comparisons available. Technique: 3 view. Findings: Moderate fecal content obscures evaluation, no dilated bowel loops, no renal calculi identified No free air. No abnormal calcifications No acute osseous abnormality. Impression: 1. No acute abnormality. Reviewed, dictated and finalized at location P. Impression: 1. No acute abnormality.
== END 2025-07-27 08:50 | disposition home or self-care (01) ==
LOC: MICIMG 08:50
PROVIDERS: PCP Urology; Visit Provider Urology
DX: Z87.442 Personal history of urinary calculi (principal)
CPT/HCPCS: 74018